=== PATIENT | female | born 1995 | race Caucasian/White ===

== ENCOUNTER 2020-07-11 14:34 | Outpatient (REF) | payer MEDICAID, SELFPAY | END 2020-07-11 14:35 | disposition home or self-care (01) | LOC: HO.LAB 14:34 | PROVIDERS: Visit Provider Internal Medicine | DX: Z20.822 Contact with and (suspected) exposure to COVID-19 (principal) | CPT/HCPCS: 36415; C9803; U0003; U0005 ==

== ENCOUNTER 2024-03-04 14:44 | Outpatient (REF) | payer MEDICAID, SELFPAY ==
[2024-03-07 17:39] LABS: TS Negative Control Passed; TS Panel A 0; TS Panel B 0; TS Positive Control Passed; TSpotTB Negative (Negative)
== END 2024-03-04 14:45 | disposition home or self-care (01) ==
LOC: HO.HHCL 14:44
PROVIDERS: Visit Provider Internal Medicine Geriatric Medicine
DX: Z11.1 Encounter for screening for respiratory tuberculosis (principal)
CPT/HCPCS: 36415; 86481

== ENCOUNTER 2024-07-15 13:39 | Outpatient (REF) | payer MEDICAID, SELFPAY ==
[2024-07-15 16:23] LABS: MANUAL DIFF FLAG NO
[2024-07-15 16:25] LABS: Basophils Percent Auto 0.3 % (0-2); Eosinophils Absolute Auto 0.1 X10*3/uL (0.0-0.4); Eosinophils Percent Auto 0.6 % (0-4); Hematocrit 40.6 % (37.0-47.0); Hemoglobin 13.4 g/dl (12.0-16.0); Imm Gran Abs Auto 0.04 X10*3/uL (0.00-0.03); Imm Gran Pct Auto 0.4 % (0.0-0.4); Lymphocytes Absolute Auto 2.9 X10*3/uL (1.2-4.9); Lymphocytes Percent Auto 27.8 % (20-40); Mean Corpuscular Volume 81.7 fL (80.0-98.0); Monocytes Absolute Auto 0.6 X10*3/uL (0.1-1.2); Monocytes Percent Auto 5.6 % (2-11); Neutrophils Absolute Auto 6.9 x10*3/uL (2.0-8.3); Neutrophils Percent Auto 65.3 % (45-73); Platelet Count 282 X10*3/uL (160-400); Red Blood Count 4.97 X10*6/uL (4.20-5.50); Red Cell Distribution Width 13.9 % (11.0-16.0); White Blood Count 10.5 X10*3/uL (4.8-10.8)
[2024-07-15 16:56] LABS: TSH reflex Free T4 1.09 uIU/mL (0.32-4.0)
[2024-07-16 08:06] LABS: HIV AB/AG Nonreactive (Nonreactive); HIV Num 1 0.07 S/CO (0.00-0.99); ~HepC Num1 0.18 S/CO (0.00-0.79); ~Hepatitis C Antibody Nonreactive (Nonreactive)
== END 2024-07-15 13:40 | disposition home or self-care (01) ==
LOC: HO.HHCL 13:39
DX: Z00.00 Encounter for general adult medical examination without abnormal findings (principal); Z11.3 Encounter for screening for infections with a predominantly sexual mode of transmission
CPT/HCPCS: 36415; 84443; 85025; 86803; 87389

== ENCOUNTER 2024-07-30 15:34 | Outpatient (REF) | payer MEDICAID, SELFPAY ==
--- OUTSIDE RECORDS SUMMARY | 2024-07-30 19:00 | XMS_ITS | Encounter Summary ---
Author Organization [employer] Address [address] [facility] [address] [place] [address] Care Team Providers Care Head Up Operator Helper Name Role Phone Arlet Sawyer MIN Primary Care Provider [phone] [phone] Encounter Details Date Type Department Care Team (Latest Contact Info) Description 07/15/2024 Travel Social History Tobacco Use Types Packs/Day Years Used Date Smoking Tobacco: Never Smokeless Tobacco: Never Alcohol Use Standard Drinks/Week Comments Yes 0 (1 standard drink = 0.6 oz pur e alcohol) Depression Answer Date Recorded Patient Health Questionnaire-9 Score 21 07/15/2024 Patient Health Questionnaire-9 Score 21 07/15/2024 Last PHQ-9: Questionnaire Data Not on file 0 07/15/2024 Housing Stability Answer Date Recorded What is your housing situation today? I have aramis gallegos 07/15/[address] you li ve. Do you have problems with any of the following? None of the above 07/15/2024 Food Insecurity Answer Date Recorded Within the past 12 months, y ou worried that your food would run out before you got money to buy more: Never True 07/15/2024 Within the past 12 months,th e food you bought just didn't last and you didn't have enough money to get more: Never True Transportation Answer Date Recorded In the past 12 months, has l ack of transportation kept you from medical appts, meetings, work or from getting things needed for daily living? No 07/15/2024 Utilities Answer Date Recorded In the past 12 months, has t he electric, gas, oil or water company threatened to shut off services in your home? No 07/15/2024 Depression Answer Date Recorded Patient Health Questionnaire-2 Score 6 07/15/2024 Internet Access Answer Date Recorded Internet Access Q1 Yes 07/15/2024 Internet Access Q2 Not on file 07/15/2024 Comments Unknown Sex and Gender Information Value Date Recorded Sex Assigned at Female 03/26/2022 10:27 AM EDT Legal Sex Female 10:27 AM EDT Gender Identity Female 03/26/2022 10:27 AM EDT Sexual Orientation Straight 03/26/2022 10 :27 AM EDT documented as of this encounter Plan of Treatment Upcoming Encounters Date Type Department Care Team (Late st Contact Info) Description 08/05/2024 10:00 AM EDT Procedure Visit [facility] [address] [place] [address] Arlet Sawyer CNP [address] [place] [address] documented as of this encounter Visit Diagnoses Not on filedocumented in this encounter Additional Health Concerns Assessment Noted Time PHQ-9 Depression Total Score: 21 025 10:22 AM EST documented as of this encounter Care Teams Head Up Operator Helper Relationship Specialty Start Date End Date Arlet Sawyer CNP [address] [place], [place] [id number] PCP - General Family Medicine 07/15/24 documented as of this encounter
--- OUTSIDE RECORDS SUMMARY | 2024-07-30 19:00 | XMS_ITS | Encounter Summary ---
Author Organization [employer] Address [address] [facility] 7 [place] [address] Care Team Providers Care Filler Shredder Name Role Phone Arlet Sawyer CNP Primary Care Provider [phone] Reason for Visit * Reason Onset Date Comments Med Refill 07/16/2024 Encounter Details Date Type Department Care Team ([facility] st Contact Info) Description 07/16/2024 Refill [facility] [address] [place] [address] Arlet Sawyer CNP [address] [place] [address] Attention deficit hyperactivity disorder (ADHD), unspecified ADHD type Social History Tobacco Use Types Packs/Day Years [...] Description 08/05/2024 10:00 AM EDT Procedure Visit [facility] [address] [place] [address] Arlet Sawyer CNP [address] [place] [address] documented as of this encounter Visit Diagnoses Diagnosis Attention deficit hyperactivity disorder (ADHD), unspecified ADHD type documented in this encounter Additional Health Concerns Assessment Noted Time PHQ-9 Depression Total Score: 21 025 10:22 AM EST documented as of this encounter Care Teams Filler Shredder Relationship Specialty Start Date End Date Arlet Sawyer CNP [address] [place] [address] PCP - General Family Medicine 07/15/24 documented as of this encounter
--- OUTSIDE RECORDS SUMMARY | 2024-07-30 19:00 | XMS_ITS | Encounter Summary ---
Author Organization [email or web address] Address [address] [facility] [address] [place] [address] Care Team Providers Care Slasher Tender Helper Name Role Phone Arlet Sawyer CNP Primary Care Provider [phone] Encounter Details Date Type Department Care Team (Late st Contact Info) Description 07/15/2024 Telephone [facility] [address] [place] [address] Arlet Sawyer CNP [address] [place] [address] Social History Tobacco Use Types Packs/Day Years [...] AM EDT documented as of this encounter Miscellaneous Notes * Telephone Encounter - Arlet Sawyer CNP - 07/15/2024 2:43 PM EST Called pt and left message regarding OCP and EC rx instructions. documented in this encounter Plan of Treatment Upcoming Encounters Date Type Department Care Team (Late st Contact Info) Description 08/05/2024 10:00 AM EDT Procedure Visit [facility] [address] [place] [address] Arlet Sawyer CNP [address] [place] [address] documented as of this encounter Visit Diagnoses Not on filedocumented in this encounter Additional Health Concerns Assessment Noted Time PHQ-9 Depression Total Score: 21 025 10:22 AM EST documented as of this encounter Care Teams Slasher Tender Helper Relationship Specialty Start Date End Date Arlet Sawyer CNP [address] [place] [address] PCP - General Family Medicine 07/15/24 documented as of this encounter
--- OUTSIDE RECORDS SUMMARY | 2024-07-30 19:00 | XMS_ITS | Encounter Summary ---
Author Organization [employer] Address [address] [facility] 7 [place] [address] Care Team Providers Care Barber Shop Manager Name Role Phone Arlet Sawyer CNP Primary Care Provider [phone] [phone] Encounter Details Date Type Department Care Team (Late st Contact Info) Description 07/17/2024 Orders Only [facility] [address] [place] [address] Arlet Sawyer CNP [address] [place] [address] Attention deficit hyperactivity disorder (ADHD), unspecified ADHD type (Primary Dx) Social History Tobacco Use Types Packs/Day Years [...] Description 08/05/2024 10:00 AM EDT Procedure Visit [facility] [address] [place] [address] Arlet Sawyer CNP [address] [place] [address] documented as of this encounter Visit Diagnoses Diagnosis Attention deficit hyperactivity disorder (ADHD), unspecified ADHD type- Primary documented in this encounter Additional Health Concerns Assessment Noted Time PHQ-9 Depression Total Score: 21 025 10:22 AM EST documented as of this encounter Care Teams Barber Shop Manager Relationship Specialty Start Date End Date Arlet Sawyer CNP [address] [place] [address] PCP - General Family Medicine 07/15/24 documented as of this encounter
--- OUTSIDE RECORDS SUMMARY | 2024-07-30 19:00 | XMS_ITS | Encounter Summary ---
Author Organization [employer] [facility] Address [address] [place] [address] [place] [address] Care Team Providers Care Corporate Services Manager Name Role Phone Arlet Sawyer CNP Primary Care Provider [phone] [phone] Encounter Details Date Type Department Care Team (Latest Contact Info) Description 08/05/2020 Abstract [facility] Dental, Provider, DDS Social History Tobacco Use Types Packs/Day Years Used Date Smoking Tobacco: Never Assessed Comments Unknown Sex and Gender Information Value [...] Description 08/05/2024 10:00 AM EDT Procedure Visit [facility] [address] [place] [address] Arlet Sawyer CNP [address] [place] [address] documented as of this encounter Visit Diagnoses Not on filedocumented in this encounter Care Teams Corporate Services Manager Relationship Specialty Start Date End Date Arlet Sawyer CNP [address] [place] [address] PCP - General Family Medicine 07/15/24 documented as of this encounter
--- OUTSIDE RECORDS SUMMARY | 2024-07-30 19:00 | XMS_ITS | Encounter Summary ---
Author Organization [employer] Address [address] [facility] 7 [place] [address] Care Team Providers Care Heat Treat Operator Name Role Phone Arlet Sawyer CNP Primary Care Provider [phone] [phone] Reason for Visit * Reason Onset Date Comments Chart Prep 07/16/2024 Encounter Details Date Type Department Care Team ([facility] st Contact Info) Description 07/16/2024 Telephone [facility] [address] [place] [address] Arlet Sawyer CNP [address] [place] [address] Chart Prep Social History Tobacco Use Types Packs/Day Years [...] encounter Miscellaneous Notes * Telephone Encounter - Joe Gruber [place] - 07/16/2024 1:21 PM EST Chart Prep Labs: done Images: not done Vaccines due: yes Referrals: pending appt Screenings: pap smear Overdue care gaps: Sbirt documented in this encounter Plan of Treatment Upcoming Encounters Date Type Department Care Team (Late st Contact Info) Description 08/05/2024 10:00 AM EDT Procedure Visit [facility] [address] [place] [address] Arlet Sawyer CNP [address] [place] [address] documented as of this encounter Visit Diagnoses Not on filedocumented in this encounter Additional Health Concerns Assessment Noted Time PHQ-9 Depression Total Score: 21 025 10:22 AM EST documented as of this encounter Care Teams Heat Treat Operator Relationship Specialty Start Date End Date Arlet Sawyer CNP [address] [place] [address] PCP - General Family Medicine 07/15/24 documented as of this encounter
--- OUTSIDE RECORDS SUMMARY | 2024-07-30 19:00 | XMS_ITS | Clinical Summary ---
Author Organization [employer] Address [address] [facility] 7 [place] [address] Care Team Providers Care Operations Trainer Name Role Phone Arlet Sawyer MIN Primary Care Provider [phone] Allergies No known active allergies Medications * This document contains information received from the source organization and may not represent a complete record from that organization. acetaminophen (Tylenol) 500 MG tablet take 1 tablet (500MG) by oral route every 6 hours as needed 07/27/19 20 Active nicotine (Nicoderm CQ) 7 MG/24HR patchIndications: Encounter for tobacco use cessation counseling Place 1 patch on the skin 1 (one) time each day at the same time. 30 patch 07/15/19 25 025 Active nicotine polacrilex (Nicorette) 4 MG gumIndications:En counter for tobacco use cessation counseling Chew 1 each (4 mg) if needed for smoking cessation. 100 each 07/15/19 25 025 Active hydrocortisone 1 % ointmentIndicatio ns:Dermatitis Apply topically 2 times daily. 56 g 07/15/19 25 Active norethindrone-eth inyl estradiol (Nortrel 0.5/35, 28,) 0.5-35 MG-MCG tabletIndications :Encounter for initial prescription of contraceptive pills Take 1 tablet by mouth Once per day. 28 tablet 12 07/15/19 25 026 Active Methylphenidate HCl (methylphenidate ER) 27 MG 24 hr tabletIndications :Attention deficit hyperactivity disorder (ADHD), unspecified ADHD type Take 1 tablet (27 mg) by mouth Once per day. Do not crush, chew, or split. 30 tablet 07/17/19 25 025 Active chlorhexidine (Peridex) 0.12 % solutionIndicatio ns:Dental abscess Swish 15 mL morning and night for 1 minute. Spit, do not swallow. Do not eat or drink for 30 minutes following use. 473 mL 11/18/19 24 025 Discontinu ed(Therapy completed) methylphenidate ER (Adhansia XR) 25 MG 24 hour capsuleIndication s:Attention deficit hyperactivity disorder (ADHD), unspecified ADHD type Take 1 capsule (25 mg) by mouth in the morning. Do not crush or chew. 30 capsule 07/15/19 25 025 Discontinu ed(Other) ulipristal (Janett) 30 mg tabletIndications :Encounter for initial prescription of contraceptive pills Take 1 tablet (30 mg) by mouth 1 (one) time for 1 dose. 1 tablet 11 07/15/19 025 Active Problems Problem Noted Date Diagnosed Date Encounter for screening exam ination for sexually transmitted disease 07/15/2024 Assessment & Plan (07/15/2024 2:27 PM EST): Ordered routine STI/screening Discussed safe sexual practices and sent script for OCPs and EC Encounter for initial prescription of contracept christophe pills 07/15/2024 Assessment & Plan (07/15/2024 2:40 PM EST): Hcg negative For contraceptive counseling today, we discussed: Methods that the patient previously used and what worked and didn't work for them: patch due to adherence Method characteristics that are important to them: control, desires weight gain, desires regular periods Their medical history,, confirming no medical contraindications to estrogen/hormonal methods/IUDs, or revealing a contraindication to estrogen/hormonal methods/IUDs We discussed the R/B/A of the methods that they are eligible for and wanted to learn about: Nexplanon, IUD (hormonal or copper), patch, OCPs We discussed that they may want to use more than one method (dual method use), one method, or no method. We also discussed that they can stay on their current method, and that they don't need to make a decision today. I emphasized that switching methods is common, and that they can discontinue using any method at any time. After today's discussion, they would like to try OCP method. We discussed correct method use and indications for emergency contraceptive use. They can follow up at any time to discuss their contraceptive options, side effects they're experiencing, or to switch methods. EC rx sent in. Dermatitis 07/15/2024 Assessment & Plan (07/15/2024 2:27 PM EST): Pt declines changes in soaps or detergents, she uses unscented products She has noticed an increase in sensitivity to certain foods and products as of lately Will send topical steroid cream for itching and inflammation, plan to refer to derm at f/u if rash persists Will refer to allergy for allergy testing Encounter for tobacco use cessation counseling 0 07/15/2024 Assessment & Plan (07/15/2024 2:31 PM EST): Pt motivated to quit and would like medication for cessation Discussed patch and gum Pt unsure of which she would like try but is leaning more towards patch Advised pt I will send patch to use daily to promote adherence and have gum on hand in case she wants to try for prn craving control Healthcare maintenance 07/15/2024 Assessment & Plan (07/15/2024 2:32 PM EST): Obtaining routine blood work today Pt will bring IMM record to f/u Pt due for pap smear Dental: UTD Eye: referral placed for routine exam Anxiety 07/15/2024 Assessment & Plan (07/15/2024 2:33 PM EST): Per pt and per exam and hx, anxiety seems to be related to lifestyle changes and stress, no SI or HI at this time Discussed various medications and resources for mh Pt declines in office consult Pt would like to be referred to for telemedicine therapy services Hearing loss of right ear 07/15/2024 Assessment & Plan (07/15/2024 2:34 PM EST): Physical exam wnl Referral to audiology for hearing test placed Family history of sickle cell anemia 07/15/2024 Assessment & Plan (07/15/2024 2:34 PM EST): Referral placed to genetics for genetic testing Allergies 07/15/2024 Assessment & Plan (07/15/2024 2:35 PM EST): She has noticed an increase in sensitivity to certain foods and products as of lately Per pt would like referral to [facility] selector for allergy testing, referral placed Attention deficit hyperactivity disorder (ADHD) 07/15/2024 Assessment & Plan (07/15/2024 2:37 PM EST): Utilized adult ADHD self reporting tool via [employer] which was positive for ADHD symptoms Also based on physical exam and hx, pt appears to have ADHD As a child pt was taking concerta Will trial concerta at initial dose F/u in 1 month Vaginal burning 07/15/2024 Assessment & Plan (07/15/2024 2:22 PM EST): Will obtain U/A today at lab along with other ordered lab work Obtaining routine STI/screening d/t to multiple instances of UPI with same partner F/u for pap smear next month Irregular periods 07/15/2024 Assessment & Plan (07/15/2024 2:24 PM EST): Discussed reasons for period irregularity as a multifactorial condition, stress and fluctuations in hormonal levels may cause changes in menses. Period was regular this month. Will obtain labs- see orders as well as pelvic/transvaginal ultrasound to rule out structural causes of irregular bleeding Discussed contraceptive methods with patient and patient would like to start OCPs for control and period regulation F/u in 1 month Encounters * This document contains information received from the source organization and may not represent a complete record from that organization. Date Type Department Care Team Description 07/17/2024 Orders Only [facility] MED[facility]INE [address] [place] [address] Arlet Saweyr CNP Attention deficit hyperactivity disorder (ADHD), unspecified ADHD type (Primary Dx) 07/16/2024 Refill [facility] [address] [place] [address] Arlet Sawyer CNP Attention deficit hyperactivity disorder (ADHD), unspecified ADHD type 07/16/[address] [address] Arlet Sawyer CNP Chart Prep 07/15/2024 10:00 AM EST Office Visit [address] [address] Arlet Sawyer CNP Encounter for screening examination for sexually transmitted disease (Primary Dx); Encounter for initial prescription of contraceptive pills; Dermatitis; Encounter for tobacco use cessation counseling; Healthcare maintenance; Anxiety; Hearing loss of right ear, unspecified hearing loss type; Family history of sickle cell anemia; Allergy, initial encounter; Attention deficit hyperactivity disorder (ADHD), unspecified ADHD type; Vaginal burning; Irregular periods 07/15/[address] [address] Arlet Sawyer CNP 07/15/2024 Travel 07/14/[address] [address] Arlet Sawyer CNP Chart prep 07/07/2024 Patient Outreach [facility] [address] [place] [address] Arlet Sawyer CNP Pre-visit Planning ([facility] unable to reach [facility]) 07/07/2024 Telephone [facility] [address] [place] [phone] Arlet Sawyer CNP Chart Prep 07/03/2024 10:00 AM EST Office Visit [facility] ADULT DENTAL [address] [place] [address] Ortega Castano 07/02/2024 11:00 AM EST Office Visit [facility] ADULT DENTAL [address] [place] [address] Ortega Castano 06/17/2024 9:30 AM EST Office Visit [facility] ADULT DENTAL [address] [place] [address] Zack Salinas DMD Severe dental caries (Primary Dx) 06/16/2024 2:00 PM EST Office Visit [facility] ADULT DENTAL [address] [place] [address] Janie Bryant DMD 05/12/[address] [address] Guerline Bolton NP Appointment Request; New Patient appt. 05/11/2024 Telephone [facility] MED[facility]INE [address] [place] [address] Aida Tello MA Chart Prep 05/05/2024 Patient Outreach [facility] PEDIATRICS [address] [place] [address] Guerline Bolton NP Pre-visit Planning (Pre-visit planning - LVM ) from Last 3 Months Social History Tobacco Use Types Packs/Day Years Used Date Smoking Tobacco: Never Smokeless Tobacco: Never Tobacco Cessation:Counseling Given: Not Answered Alcohol Use Standard Drinks/Week Comments Yes 0 [...] Orientation Straight 03/26/2022 10 :27 AM EDT Last Filed Vital Signs Vital Sign Reading Time Taken Comments Blood Pressure 108/62 07/15/2024 10:11 AM EST Pulse 80 07/15/2024 10:11 AM EST Temperature 37.1 ??C (98.7 ??F) 07/15/2024 10:[address] Respiratory Rate 16 07/15/2024 10:11 AM EST Oxygen Saturation 99% 07/15/2024 10:11 AM EST Inhaled Oxygen Concentration - - Weight 52.8 kg (116 lb 6.4 oz) 07/15/2024 10:11 AM EST Height - - Body Mass Index - - Plan of Treatment Upcoming Encounters Date Type Department Care Team (Late st Contact Info) Description 08/05/2024 10:00 AM EDT Procedure Visit [facility] MED[facility] [address] [place] [address] [phone] Arlet Sawyer, [facility] [address], [place] [phone] Health Maintenance Due Date Last Done Comments Alcohol/Substance Use Screening 2008 DTaP/Tdap/Td Vaccines (1 - Tdap) 01/22/2015 Hepatitis B Vaccines (1 of 3 - 19+ 3-dose series) 01/22/2015 Pap Smear 01/22/2017 COVID-19 Vaccine ( - 2023-2 5 season) 2024 Influenza Vaccine (#1) 2024 Dental Oral Exam 10/02/2024 04/03/2024, 08/05/2020 Dental Prophylaxis 10/02/2024 04/03/2024, 08/05/2020 Depression Monitoring (PHQ-9) 01/12/2025, 07/15/2024 Dental X-Ray: Bitewings 06/17/2025 06/16/19 25, 04/03/2024, 08/05/2020 Tobacco Screening 06/17/2025 06/17/2024 Depression Screening 07/15/2025 07/15/2024, 07/15/2024 Family Planning (PISQ) 07/15/2025 07/15/2024 SDOH Screening 07/15/2025 07/15/2024 Dental X-Ray: Full Mouth 04/04/2027 024, 08/05/2020, 04/02/2018 Zoster Vaccines (1 of 2) 01/22/2046 RSV Patients and Patients Aged 60 years or older (1 - 1-dose 75+ series) 01/22/2071 HIV Screening Completed 07/15/2024 Hepatitis C Screening Completed 07/15/2024 HIB Vaccines Aged Out No longer eligi ble based on patient's age to complete this topic HPV Vaccines Aged Out No longer eligi ble based on patient's age to complete this topic Hepatitis A Vaccines Aged Out No long er eligible based on patient's age to complete this topic IPV Vaccines Aged Out No longer eligi ble based on patient's age to complete this topic Meningococcal Vaccine Aged Out No acacia suresh eligible based on patient's age to complete this topic Pneumococcal Vaccine: Pediatrics (0 to 5 Years) and At-Risk Patients (6 to 49) Years) Aged Out No longer eligible b ased on patient's age to complete this topic RSV under 20 months Aged Out No longe r eligible based on patient's age to complete this topic Rotavirus Vaccines Aged Out No longer eligible based on patient's age to complete this topic Procedures Procedure Name Priority Date/Time Associated Diagnosis Comments TSH W/REFLEX TO FT4 Routine 07/15/2024 1 :41 PM EST Healthcare maintenance CBC WITH AUTO DIFFERENTIAL Routine 07/15/2024 1:41 PM EST Healthcare maintenance HEPATITIS C AB W/REFL TO HCV RNA, QN, PCR Routine 07/15/2024 1:41 PM EST Encounter for screening examination for sexually transmitted disease HIV 1/2 ANTIGEN/ANTIBODY, FOURTH GENERATION W/RFL Routine 07/15/2024 1:41 PM EST Encounter for screening examination for sexually transmitted disease POCT , URINE Routine 07/15/2024 10:24 AM EST Encounter for screening examination for sexually transmitted disease 2 O RESIN-BASED COMPOSITE - 1 SURF, POSTERIOR Routine 07/03/2024 10:00 AM EST ORAL HYGIENE INSTRUCTIONS Routine 07/02/2024 11:00 AM EST 15 LO RESIN-BASED COMPOSITE - 2 SURF, POSTERIOR Routine 07/02/2024 11:00 AM EST CASE PRESENTATION, DETAILED AND EXTENSIVE TREATMENT PLANNING Routine 06/17/2024 9:30 AM EST Severe dental caries 18 EXTRACTION, ERUPTED TOOTH OR EXPOSED ROOT (ELEVATION/FORCEPS REMOVAL) Routine 06/17/2024 9:30 AM EST Severe dental caries CASE PRESENTATION, DETAILED AND EXTENSIVE TREATMENT PLANNING Routine 06/16/2024 2:00 PM EST BITEWING - SINGLE RADIOGRAPHIC IMAGE Routine 06/16/2024 2:00 PM EST INTRAORAL - PERIAPICAL FIRST RADIOGRAPHIC IMAGE Routine 06/16/2024 2:00 PM EST LIMITED ORAL EVALUATION - PROBLEM FOCUSED Routine 06/16/2024 2:00 PM EST PROPHYLAXIS - ADULT Routine 04/03/2024 2 :00 PM EST INTRAORAL - COMPLETE SERIES OF RADIOGRAPHIC IMAGES Routine 04/03/2024 2:00 PM EST COMPREHENSIVE ORAL EVALUATION - NEW OR ESTABLISHED PATIENT Routine 04/03/2024 2:00 PM EST from Last 3 Months or Most Recently Relevant to Health Maintenance Results * TSH W/Reflex to FT4 (07/15/2024 1:41 PM EST) TSH reflex Free T4 1.09 0.32 - 4.0 uIU/mL [facility] Blood Venous blood specimen / Unknown 07/15/2024 1:41 PM EST 07/15/2024 4:20 PM EST [facility] LAB BLOOD ORDERABLES Katya l Result [facility] [address] [place] [address] [phone] * (ABNORMAL) CBC auto differential (07/15/2024 1:41 PM EST) White Blood Count 10.5 4.8 - 10.8 X10*3/uL [facility] Red Blood Count 4.97 4.20 - 5.50 X10*6/uL [facility] Hemoglobin 13.4 12.0 - 16.0 g/dl [facility] Hematocrit 40.6 37.0 - 47.0 % [facility] Mean Corpuscular Volume 81.7 80.0 - 98.0 fL [facility] Mean Corpuscular Hemoglobin 27.0 27.0 - 33.0 pg [facility] Mean Corpuscular HGB Conc 33.0 31.0 - 35.0 g/dl [facility] Red Cell Distribution Width 13.9 11.0 - 16.0 % [facility] Platelet Count 282 160 - 400 X10*3/uL [facility] Mean Platelet Volume 9.0(L) 9.4 - 12.3 fL [facility] Neutrophils Percent Auto 65.3 45 - 73 % [facility] Imm Gran Pct Auto 0.4 0.0 - 0.4 % [facility] Lymphocytes Percent Auto 27.8 20 - 40 % [facility] Monocytes Percent Auto 5.6 2 - 11 % [facility] Eosinophils Percent Auto 0.6 0 - 4 % [facility] Basophils Percent Auto 0.3 0 - 2 % [facility] NRBC Pct Auto 0.0 0.0 - 0.2 /100WBC [facility] Neutrophils Absolute Auto 6.9 2.0 - 8.3 x10*3/uL [facility] Imm Gran Abs Auto 0.04(H) 0.00 - 0.03 X10*3/uL [facility] Lymphocytes Absolute Auto 2.9 1.2 - 4.9 X10*3/uL [facility] Monocytes Absolute Auto 0.6 0.1 - 1.2 X10*3/uL [facility] Eosinophils Absolute Auto 0.1 0.0 - 0.4 X10*3/uL [facility] Basophils Absolute Auto 0.0 0.0 - 0.2 X10*3/uL [facility] NRBC Abs Auto 0.000 0.0 - 0.012 X10*3/uL [facility] Blood Venous blood specimen / Unknown 07/15/2024 1:41 PM EST 07/15/2024 4:20 PM EST [facility] LAB BLOOD ORDERABLES Katya l Result Performing Organization Address City/[facility]/ZIP Co de Phone Number [facility] [address] [place] [phone] * Hepatitis C Antibody with Reflex to HCV, RNA, Quantitative, Real-Time PCR (07/15/2024 1:41 PM EST) Hepatitis C Antibody Nonreactive Nonreactive [facility] Comment:Antibodies to HCV no t detected; does not exclude early acuteHCV infection. Blood Venous blood specimen / Unknown 07/15/2024 1:41 PM EST 07/15/2024 4:20 PM EST [facility] LAB BLOOD ORDERABLES Katya l Result Performing Organization Address [facility] Co de Phone Number [facility] [address] [place] [phone] * HIV-1/2 Antigen and Antibodies, Fourth Generation, with Reflexes (07/15/2024 1:41 PM EST) HIV AB/AG Nonreactive Nonreactive [facility] Comment:HIV-1 p24 Ag and/or HIV-1/HIV-2 Ab not detected.A test result that is nonreactive does not exclude thepossibility of exposure to or infection with HIV-1 and/orHIV-2. Nonreactive results in this assay for individualswith prior exposure to HIV-1 and/or HIV-2 may be due toantigen and antibody levels that are below the limit ofdetection of this assay.The [email or web address] HIV Ag/Ab Combo assay result andsupplemental assay results should be interpreted inconjunction with the patient's clinical presentation,history and other laboratory results. If the results areinconsistent with clinical evidence, additional testing issuggested to confirm the result. Blood Venous blood specimen / Unknown 07/15/2024 1:41 PM EST 07/15/2024 4:20 PM EST [facility] [employer] LAB BLOOD ORDERABLES Katya l Result [facility] [address] [place] [address] [phone] * POCT Urine (07/15/2024 10:24 AM EST) Preg Test, Ur Negative Negative, Indeterminate, None Detected, Invalid, Specimen unsatisfactory for evaluation, Weakly Positive QC Media Lot # [id number] Lot# Expiration Date [id number] Urine 07/15/2024 10:2 4 AM EST [facility] [employer] POINT OF CARE TEST ENTER/ EDIT ORDERABLES Final Result from Last 3 Months Insurance [facility] C3 DENTAL-[facility] MEDICAID STAND ADULT Care Teams Operations Trainer Relationship Specialty Start Date End Date Arlet Sawyer CNP [address] [place] [phone] PCP - General Family Medicine 07/15/24
--- OUTSIDE RECORDS SUMMARY | 2024-07-30 19:00 | XMS_ITS | Encounter Summary ---
Author Organization [facility] Address [address] [place] [address] [place] [address] Care Team Providers Care Net Developer Architect Name Role Phone Arlet Sawyer CNP Primary Care Provider [phone] Encounter Details Date Type Department Care Team (Late st Contact Info) Description 10/09/2022 Abstract [facility] ADULT DENTAL [address] [place] [address] Сергей Kunz DMD [address] [place] [address] Social History Tobacco Use Types Packs/Day Years [...] Description 08/05/2024 10:00 AM EDT Procedure Visit [facility] MEDICINE [address] [place] [address] Arlet Sawyer CNP [address] [place] [address] documented as of this encounter Visit Diagnoses Not on filedocumented in this encounter Care Teams Net Developer Architect Relationship Specialty Start Date End Date Arlet Sawyer CNP [address] [place] [address] PCP - General Family Medicine 07/15/24 documented as of this encounter
--- OUTSIDE RECORDS SUMMARY | 2024-07-30 19:01 | XMS_ITS | Encounter Summary ---
Author Organization [employer] Address [address] [facility] 7 [place] [address] Care Team Providers Care Shirt Finisher Name Role Phone Unavailable Primary Care Provider Unavailabl e Reason for Visit * Reason Onset Date Comments Chart prep 07/14/2024 Encounter Details Date Type Department Care Team ([facility] st Contact Info) Description 07/14/2024 Telephone [facility] MEDICINE [address] [place] [address] Arlet Sawyer CNP [address] [place] [address] Chart prep Social History Tobacco Use Types Packs/Day Years [...] encounter Miscellaneous Notes * Telephone Encounter - Jeo Gruber [place] - 07/14/2024 10:42 AM EST Chart Prep Labs: not applicable Images: not applicable Vaccines due: yes Tdap Flu Covid Referrals: pending appt Screenings: pap smear , STI screening Depression HIV Alcohol/Substance Use Hep C Overdue care gaps: Sbirt, SDOH, PHQ-9, Oral Health, CECILIA-7 documented in this encounter Plan of Treatment Upcoming Encounters Date Type Department Care Team (Late st Contact Info) Description 08/05/2024 10:00 AM EDT Procedure Visit [facility] MED[facility] [address] [place] [address] Arlet Sawyer CNP [address] [place] [address] documented as of this encounter Visit Diagnoses Not on filedocumented in this encounter
--- OUTSIDE RECORDS SUMMARY | 2024-07-30 19:01 | XMS_ITS | Encounter Summary ---
Author Organization [employer] Address [address] [facility] [place] [address] Care Team Providers Care Transportation Modeler Name Role Phone Unavailable Primary Care Provider Unavailabl e Reason for Visit * Reason Onset Date Comments Chart Prep 07/07/2024 Encounter Details Date Type Department Care Team ([facility] Contact Info) Description 07/07/2024 Telephone [facility] WALK-IN CENTER [address] [place] [phone] Arlet Sawyer CNP [address] [place] [address] Chart Prep Social History Tobacco Use Types Packs/Day Years Used Date Smoking Tobacco: Never Smokeless Tobacco: Never Alcohol Use Standard Drinks/Week Comments Yes 0 (1 standard drink = 0.6 oz pur e alcohol) Comments Unknown Sex and Gender Information Value Date Recorded Sex Assigned at Female 03/26/2022 10:27 AM EDT Legal Sex Female 10:27 AM EDT Gender Identity Female 03/26/2022 10:27 AM EDT Sexual Orientation Straight 03/26/2022 10 :27 AM EDT documented as of this encounter Miscellaneous Notes * Telephone Encounter - Joe Gruber [place] - 07/07/2024 10:06 AM EST Chart Prep Labs: not done Images: not applicable Vaccines due: yes Tdap Hep B Flu Covid Referrals: pending appt Screenings: Depression HIV Alcohol/Substance Use PISQ Pap Smear Overdue care gaps: Sbirt, SDOH, PHQ-9, CECILIA-7 documented in this encounter Plan of Treatment Upcoming Encounters Date Type Department Care Team (Late st Contact Info) Description 08/05/2024 10:00 AM EDT Procedure Visit [facility] MEDICINE [address] [place], [place] [phone] Arlet Sawyer CNP [address] [place] [address] documented as of this encounter Visit Diagnoses Not on filedocumented in this encounter
--- OUTSIDE RECORDS SUMMARY | 2024-07-30 19:01 | XMS_ITS | Encounter Summary ---
Author Organization [employer] Address [address] [place] [address] 7 [place] [address] Care Team Providers Care Shift Nurse Manager Name Role Phone Arlet Sawyer CNP Primary Care Provider [phone] Reason for Referral * Imaging (Routine) - Authorized Specialty Diagnoses / Procedures Referred By Jennifer mcguire Referred To Contact Radiology Diagnoses Irregular periods Procedures US PELVIC AND TRANSVAGINAL Arlet Sawyer CNP [address] [place] [address] Phone: tel: fax: [address] Phone: tel: fax: Referral ID Status Reason Start Date Expiration Date V isits Requested Visits Authorized [id number] Authorized 07/15/2024 07/15/2025 1 1 * Consultation (Routine) - Authorized Specialty Diagnoses / Procedures Referred By Jennifer mcguire Referred To Contact Optometry Diagnoses Healthcare maintenance Arlet Sawyer CNP [address] [place] [address] Phone: tel: fax: [facility] [address] [place] [phone] Phone: tel: fax: Referral ID Status Reason Start Date Expiration Date Visits Requested Visits Authorized [id number] Authorized Consult and Treat 07/15/2024 07/15/2025 1 1 * Consultation (Routine) - Authorized Specialty Diagnoses / Procedures Referred By Jennifer mcguire Referred To Contact Allergy Diagnoses Allergy, initial encounter Arlet Sawyer CNP [address] [place] [address] Phone: tel: fax: Josue Kunz MD [address] [facility] [address] [place] [address] Phone: tel: fax: Referral ID Status Reason Start Date Expiration Date Visits Requested Visits Authorized [id number] Authorized Specialty Services Required 07/15/2024 07/15/2025 12 12 * Consultation (Routine) - Closed Specialty Diagnoses / Procedures Referred By Jennifer mcguire Referred To Contact Genetics Diagnoses Family history of sickle cell anemia Arlet Sawyer CNP [address] [place] [address] Phone: tel: fax: [facility] [address], [place] Phone: tel: fax: Referral ID Status Reason Start Date Expiration Date V isits Requested Visits Authorized [id number] Closed Specialty Services Required 07/15/2024 07/15/2025 1 1 * Consultation (Routine) - Authorized Specialty Diagnoses / Procedures Referred By Jennifer mcguire Referred To Contact Audiology Diagnoses Hearing loss of right ear, unspecified hearing loss type Arlet Sawyer CNP [address] [place] [address] Phone: tel: fax: [facility] [address] Floor [place], [place] Phone: tel: fax: Referral ID Status Reason Start Date Expiration Date Visits Requested Visits Authorized [id number] Authorized Specialty Services Required 07/15/2024 07/15/2025 6 6 * Consultation (Routine) - Closed Specialty Diagnoses / Procedures Referred By Jennifer mcguire Referred To Contact Behavioral Health Diagnoses Anxiety Arlet Sawyer CNP [address] [place] [address] Phone: tel: fax: Referral ID Status Reason Start Date Expiration Date V isits Requested Visits Authorized [id number] Closed Specialty Services Required 07/15/2024 07/15/2025 1 1 Reason for Visit * Reason Comments New Pt Encounter Details Date Type Department Care Team (Latest Contact Info) Description 07/15/2024 10:00 AM EST Office Visit [facility] [address] [place] [phone] Arlet Sawyer CNP [address] [place] [address] Encounter for screening examination for sexually transmitted disease (Primary Dx); Encounter for initial prescription of contraceptive pills; Dermatitis; Encounter for tobacco use cessation counseling; Healthcare maintenance; Anxiety; Hearing loss of right ear, unspecified hearing loss type; Family history of sickle cell anemia; Allergy, initial encounter; Attention deficit hyperactivity disorder (ADHD), unspecified ADHD type; Vaginal burning; Irregular periods Social History Tobacco Use Types Packs/Day Years [...] AM EDT documented as of this encounter Last Filed Vital Signs Vital Sign Reading [...] - - Body Mass Index - - documented in this encounter Progress Notes * Arlet Sawyer CNP - 07/15/2024 10:00 AM EST Subjective: Amisha Elliott is a 29 y.o. female who presents to the office for a new patient visit. Previous PCP none. Interim history: Pt says she has been getting ready to take her ASVAB exam. 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 Current concerns: Attention concerns, has childhood ADHD hx, reports sx getting worse as of July 2023 when she started schiik. Hearing concerns, pt reports she is having muffled hearing in her R ear that has been going on for about a year. Allergen testing- noticing new food allergies such as allergy to tomatoes causing pharyngeal itching Having trouble gaining weight, appetite is good, tried increasing protein, ensure, creatine. Goes to the gym, 2x a week, does weight lifting. Would like to discuss contraceptive methods Pt also complaining of burning sensation when she uses the bathroom, and she also says that since she was a child she has always held her bladder for too long before using the bathroom. Pt would like to get genetic testing for sickle cell as she has a positive family hx. Father, mother, and older brother have sickle cell trait. Patient Active Problem List Diagnosis Encounter for screening examination for sexually transmitted disease Encounter for initial prescription of contraceptive pills Dermatitis Encounter for tobacco use cessation counseling Healthcare maintenance Anxiety Hearing loss of right ear Family history of sickle cell anemia Allergies Attention deficit hyperactivity disorder (ADHD) Vaginal burning Irregular periods No past surgical history on file. No family history on file. Social History Living situation: lives at home with mom Employment/Education: job less currently, looking for job. 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 Diet/exercise: exercises 2 x a week Substance use: -alcohol : occasionally, 1-2 drinks weekly -tobacco : flavored nicotine vapes, started last summer 2023, takes about 4 puffs daily -opioids: none Sexual activity: yes, has monogamous AMAB partner x 8 months, last UPI 5 days ago Contraception: none at this time , hx of using patch Mental health: Patient Health Questionnaire-9 Score: 21 (07/15/2024 10:22 AM) Patient Health Questionnaire-2 Score: 6 (07/15/2024 10:22 AM) Thoughts that you would be better off or hurting yourself in some way: Not at all (07/15/2024 10:22 AM) CECILIA-7 Total Score: 16 (07/15/2024 10:23 AM) 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 Has had to use tampons when periods were heavier. No hx of pap smear No Known Allergies Review of Systems Constitutional: Negative for activity change, appetite change, chills, diaphoresis, fatigue, fever and unexpected weight change. HENT: Positive for hearing loss. Negative for ear discharge and ear pain. Eyes: Negative for visual disturbance. Respiratory: Negative for cough, choking, shortness of breath and wheezing. Cardiovascular: Negative for chest pain and palpitations. Gastrointestinal: Negative for abdominal distention, abdominal pain, blood in stool, constipation, diarrhea, nausea and vomiting. Genitourinary: Positive for dysuria and menstrual problem. Negative for flank pain, hematuria, pelvic pain, urgency, vaginal bleeding, vaginal discharge and vaginal pain. Musculoskeletal: Negative. Neurological: Positive for weakness. Negative for dizziness, seizures, speech difficulty, light-headedness and headaches. Psychiatric/Behavioral: Positive for decreased concentration. Negative for behavioral problems, confusion, dysphoric mood, hallucinations, self-injury, sleep disturbance and suicidal ideas. The patient is nervous/anxious and is hyperactive. Vitals: 07/15/24 1011 BP: 108/62 Pulse: 80 Resp: 16 Temp: 98.7 ??F (37.1 ??C) TempSrc: Oral SpO2: 99% Weight: 116 lb 6.4 oz (52.8 kg) Physical Exam Constitutional: General: She is not in acute distress. Appearance: Normal appearance. She is not ill-appearing or toxic-appearing. HENT: Head: Normocephalic and atraumatic. Right Ear: Tympanic membrane, ear canal and external ear normal. There is no impacted cerumen. Left Ear: Tympanic membrane, ear canal and external ear normal. There is no impacted cerumen. Nose: No congestion or rhinorrhea. Mouth/Throat: Mouth: Mucous membranes are moist. Pharynx: No oropharyngeal exudate or posterior oropharyngeal erythema. Eyes: General: No scleral icterus. Right eye: No discharge. Left eye: No discharge. Extraocular Movements: Extraocular movements intact. Conjunctiva/sclera: Conjunctivae normal. Pupils: Pupils are equal, round, and reactive to light. Cardiovascular: Rate and Rhythm: Normal rate and regular rhythm. Pulses: Normal pulses. Heart sounds: Normal heart sounds. No murmur heard. No friction rub. No gallop. Pulmonary: Effort: Pulmonary effort is normal. No respiratory distress. Breath sounds: Normal breath sounds. No stridor. No wheezing, rhonchi or rales. Chest: Chest wall: No tenderness. Abdominal: General: Abdomen is flat. Bowel sounds are normal. There is no distension. Palpations: Abdomen is soft. There is no mass. Tenderness: There is abdominal tenderness in the suprapubic area. There is no guarding. Comments: +mild tenderness to palpation in left lower pelvic area Musculoskeletal: General: Normal range of motion. Cervical back: Normal range of motion and neck supple. No tenderness. Right lower leg: No edema. Left lower leg: No edema. Lymphadenopathy: Cervical: No cervical adenopathy. Skin: General: Skin is warm and dry. Capillary Refill: Capillary refill takes less than 2 seconds. Findings: Rash present. Comments: +skin rash noted under bra strap in the front and back of abdomen. Neurological: General: No focal deficit present. Mental Status: She is alert and oriented to person, place, and time. Psychiatric: Mood and Affect: Mood normal. Behavior: Behavior normal. Thought Content: Thought content normal. Judgment: Judgment normal. Problem List Items Addressed This Visit Encounter for screening examination for sexually transmitted disease - Primary Current Assessment & Plan Ordered routine STI/screening Discussed safe sexual practices and sent script for OCPs and EC Relevant Orders POCT Urine (Completed) HIV-1/2 Antigen and Antibodies, Fourth Generation, with Reflexes Hepatitis C Antibody with Reflex to HCV, RNA, Quantitative, Real-Time PCR Encounter for initial prescription of contraceptive pills Current Assessment & Plan Hcg negative For contraceptive counseling today, we [...] try OCP method. We discussed correct method useand indications for emergency contraceptive use. They can follow up at any time to discuss their contraceptive options, side effects they're experiencing, or to switch methods. EC rx sent in. Relevant Medications norethindrone-ethinyl estradiol (Nortrel 0.5/35, 28,) 0.5-35 MG-MCG tablet ulipristal (Janett) 30 mg tablet Dermatitis Current Assessment & Plan Pt declines changes in soaps or detergents, she uses unscented products She has noticed an increase in sensitivity to certain foods and products as of lately Will send topical steroid cream for itching and inflammation, plan to refer to derm at f/u if rash persists Will refer to allergy for allergy testing Relevant Medications hydrocortisone 1 % ointment Encounter for tobacco use cessation counseling Current Assessment & Plan Pt motivated to quit and would like medication for cessation Discussed patch and gum Pt unsure of which she would like try but is leaning more towards patch Advised pt I will send patch to use daily to promote adherence and have gum on hand in case she wants to try for prn craving control Relevant Medications nicotine (Nicoderm CQ) 7 MG/24HR patch nicotine polacrilex (Nicorette) 4 MG gum Healthcare maintenance Current Assessment & Plan Obtaining routine blood work today Pt will bring IMM record to f/u Pt due for pap smear Dental: UTD Eye: referral placed for routine exam Relevant Orders CBC auto differential TSH W/Reflex to FT4 Referral to [facility] Care Anxiety Current Assessment & Plan Per pt and per exam and hx, anxiety seems to be related to lifestyle changes and stress, no SI or HI at this time Discussed various medications and resources for mh Pt declines in office consult Pt would like to be referred to for telemedicine therapy services Relevant Orders Referral to Behavioral Health Hearing loss of right ear Current Assessment & Plan Physical exam wnl Referral to audiology for hearing test placed Relevant Orders Referral to Audiology Family history of sickle cell anemia Current Assessment & Plan Referral placed to genetics for genetic testing Relevant Orders Referral to Genetics Allergies Current Assessment & Plan She has noticed an increase in sensitivity to certain foods and products as of lately Per pt would like referral to pai gow manager for allergy testing, referral placed Relevant Orders Referral to Allergy Attention deficit hyperactivity disorder (ADHD) Current Assessment & Plan Utilized adult ADHD self reporting tool via UpToDate which was positive for ADHD symptoms Also based on physical exam and hx, pt appears to have ADHD As a child pt was taking concerta Will trial concerta at initial dose F/u in 1 month Relevant Medications methylphenidate ER (Adhansia XR) 25 MG 24 hour capsule Vaginal burning Current Assessment & Plan Will obtain U/A today at lab along with other ordered lab work Obtaining routine STI/screening d/t to multiple instances of UPI with same partner F/u for pap smear next month Relevant Orders Urinalysis, Complete, with Reflex to Culture Irregular periods Current Assessment & Plan Discussed reasons for period irregularity as a multifactorial condition, stress and fluctuations inhormonal levels may cause changes in menses. Period was regular this month. Will obtain labs- see orders as well as pelvic/transvaginal ultrasound to rule out structural causes of irregular bleeding Discussed contraceptive methods with patient and patient would like to start OCPs for controland period regulation F/u in 1 month Relevant Orders US PELVIC AND TRANSVAGINAL Routine Screening and Health Maintenance Optometry: No Dentist: Yes , [facility] dental IMMs: pt reports her immunizations are UTD, plans to bring records to f/u. 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 I, Vee Hassan MD,, have reviewed the resident's note and agree with the assessment & plan of care as documented above. documented in this encounter Miscellaneous Notes * Assessment & Plan Note - Arlet Sawyer CNP - 07/15/2024 2:37 PM EST Associated Problem(s): Attention deficit hyperactivity disorder (ADHD) Utilized adult ADHD self reporting tool via UpToDate which was positive for ADHD symptoms Also based on physical exam and hx, pt appears to have ADHD As a child pt was taking concerta Will trial concerta at initial dose F/u in 1 month * Assessment & Plan Note - Arlet Sawyer CNP - 07/15/2024 2:35 PM EST Associated Problem(s): Allergies She has noticed an increase in sensitivity to certain foods and products as of lately Per pt would like referral to pai gow manager for allergy testing, referral placed * Assessment & Plan Note - Arlet Sawyer CNP - 07/15/2024 2:34 PM EST Associated Problem(s): Family history of sickle cell anemia Referral placed to genetics for genetic testing * Assessment & Plan Note - Arlet Sawyer CNP - 07/15/2024 2:34 PM EST Associated Problem(s): Hearing loss of right ear Physical exam wnl Referral to audiology for hearing test placed * Assessment & Plan Note - Arlet Sawyer CNP - 07/15/2024 2:33 PM EST Associated Problem(s): Anxiety Per pt and per exam and hx, anxiety seems to be related to lifestyle changes and stress, no SI or HI at this time Discussed various medications and resources for mh Pt declines in office consult Pt would like to be referred to for telemedicine therapy services * Assessment & Plan Note - Arlet Sawyer CNP - 07/15/2024 2:32 PM EST Associated Problem(s): Healthcare maintenance Obtaining routine blood work today Pt will bring IMM record to f/u Pt due for pap smear Dental: UTD Eye: referral placed for routine exam * Assessment & Plan Note - Arlet Sawyer CNP - 07/15/2024 2:31 PM EST Associated Problem(s): Encounter for tobacco use cessation counseling Pt motivated to quit and would like medication for cessation Discussed patch and gum Pt unsure of which she would like try but is leaning more towards patch Advised pt I will send patch to use daily to promote adherence and have gum on hand in case she wants to try for prn craving control * Assessment & Plan Note - Arlet Sawyer CNP - 07/15/2024 2:29 PM EST Associated Problem(s): Encounter for initial prescription of contraceptive pills Hcg negative For contraceptive counseling today, we [...] try OCP method. We discussed correct method useand indications for emergency contraceptive use. They can follow up at any time to discuss their contraceptive options, side effects they're experiencing, or to switch methods. EC rx sent in. * Assessment & Plan Note - Arlet Sawyer CNP - 07/15/2024 2:27 PM EST Associated Problem(s): Encounter for screening examination for sexually transmitted disease Ordered routine STI/screening Discussed safe sexual practices and sent script for OCPs and EC * Assessment & Plan Note - Arlet Sawyer CNP - 07/15/2024 2:27 PM EST Associated Problem(s): Dermatitis Pt declines changes in soaps or detergents, she uses unscented products She has noticed an increase in sensitivity to certain foods and products as of lately Will send topical steroid cream for itching and inflammation, plan to refer to derm at f/u if rash persists Will refer to allergy for allergy testing * Assessment & Plan Note - Arlet Sawyer CNP - 07/15/2024 2:24 PM EST Associated Problem(s): Irregular periods Discussed reasons for period irregularity as a multifactorial condition, stress and fluctuations inhormonal levels may cause changes in menses. Period was regular this month. Will obtain labs- see orders as well as pelvic/transvaginal ultrasound to rule out structural causes of irregular bleeding Discussed contraceptive methods with patient and patient would like to start OCPs for controland period regulation F/u in 1 month * Assessment & Plan Note - Arlet Sawyer CNP - 07/15/2024 2:22 PM EST Associated Problem(s): Vaginal burning Will obtain U/A today at lab along with other ordered lab work Obtaining routine STI/screening d/t to multiple instances of UPI with same partner F/u for pap smear next month documented in this encounter Plan of Treatment Upcoming Encounters Date Type Department Care Team (Late st Contact Info) Description 08/05/2024 10:00 AM EDT Procedure Visit [facility] [address] [place] [address] Arlet Sawyer CNP [address] [place] [address] Scheduled Orders Name Type Priority Associated Diagnoses Orde r Schedule Urinalysis, Complete, with Reflex to Culture Lab Routine Vaginal burning Expected: 07/15/2024 (Approximate), Expires: 07/15/2025 US PELVIC AND TRANSVAGINAL Imaging Routine Irregular periods Expected: 07/15/2024, Expires: 07/15/2025 Scheduled Referrals Name Type Priority Associated Diagnoses Orde r Schedule Referral to Behavioral Health Outpatient Referral Routine Anxiety Expected: 07/15/2024 (Approximate), Expires: 07/15/2025 Referral to Audiology Outpatient Referral Routine Hearing loss of right ear, unspecified hearing loss type Expected: 07/15/2024 (Approximate), Expires: 07/15/2025 Referral to Genetics Outpatient Referral Routine Family history of sickle cell anemia Expected: 07/15/2024 (Approximate), Expires: 07/15/2025 Referral to Allergy Outpatient Referral Routine Allergy, initial encounter Expected: 07/15/2024 (Approximate), Expires: 07/15/2025 Referral to [facility] Outpatient Referral Routine Healthcare maintenance Expected: 07/15/2024 (Approximate), Expires: 07/15/2025 documented as of this encounter Procedures Procedure Name Priority Date/Time Associated Diagnosis [...] for screening examination for sexually transmitted disease documented in this encounter Results * TSH W/Reflex to FT4 (07/15/2024 1:41 PM EST) TSH reflex Free T4 1.09 0.32 - 4.0 uIU/mL [facility] Blood Venous blood specimen / Unknown 07/15/2024 1:41 PM EST 07/15/2024 4:20 PM EST Arlet Sawyer [employer] LAB BLOOD ORDERABLES Katya l Result [facility] [address] [place], [place] [phone] * (ABNORMAL) CBC auto differential (07/15/2024 1:41 PM EST) White Blood Count 10.5 4.8 - 10.8 X10*3/uL [facility] Red Blood Count 4.97 4.20 - 5.50 X10*6/uL [facility] Hemoglobin 13.4 12.0 - 16.0 g/dl [facility] Hematocrit 40.6 37.0 - 47.0 % [facility] Mean Corpuscular Volume 81.7 80.0 - 98.0 fL [facility] Mean Corpuscular Hemoglobin 27.0 27.0 - 33.0 pg [facility] Mean Corpuscular HGB Conc 33.0 31.0 - 35.0 g/dl [facility] Red Cell Distribution Width 13.9 11.0 - 16.0 % [facility] Platelet Count 282 160 - 400 X10*3/uL [facility] Mean Platelet Volume 9.0(L) 9.4 - 12.3 fL [facility] Neutrophils Percent Auto 65.3 45 - 73 % [facility] Imm Gran Pct Auto 0.4 0.0 - 0.4 % [facility] Lymphocytes Percent Auto 27.8 20 - 40 % [facility] Monocytes Percent Auto 5.6 2 - 11 % [facility] Eosinophils Percent Auto 0.6 0 - 4 % [facility] Basophils Percent Auto 0.3 0 - 2 % [facility] NRBC Pct Auto 0.0 0.0 - 0.2 /100WBC [facility] Neutrophils Absolute Auto 6.9 2.0 - 8.3 x10*3/uL [facility] Imm Gran Abs Auto 0.04(H) 0.00 - 0.03 X10*3/uL [facility] Lymphocytes Absolute Auto 2.9 1.2 - 4.9 X10*3/uL [facility] Monocytes Absolute Auto 0.6 0.1 - 1.2 X10*3/uL [facility] Eosinophils Absolute Auto 0.1 0.0 - 0.4 X10*3/uL [facility] Basophils Absolute Auto 0.0 0.0 - 0.2 X10*3/uL [facility] NRBC Abs Auto 0.000 0.0 - 0.012 X10*3/uL [facility] Blood Venous blood specimen / Unknown 07/15/2024 1:41 PM EST 07/15/2024 4:20 PM EST [facility] LAB BLOOD ORDERABLES Katya l Result Performing Organization Address City/[facility]/ZIP Co de Phone Number [facility] [address] [place] [phone] * Hepatitis C Antibody with Reflex to HCV, RNA, Quantitative, Real-Time PCR (07/15/2024 1:41 PM EST) [facility] Hepatitis C Antibody Nonreactive Nonreactive [facility] Comment:Antibodies to HCV no t detected; does not exclude early acuteHCV infection. Blood Venous blood specimen / Unknown 07/15/2024 1:41 PM EST 07/15/2024 4:20 PM EST [facility] LAB BLOOD ORDERABLES Katya l Result Performing Organization Address City/[facility] Co de Phone Number [facility] [address] [place] [phone] * HIV-1/2 Antigen and Antibodies, Fourth Generation, with Reflexes (07/15/2024 1:41 PM EST) [facility] HIV AB/AG Nonreactive Nonreactive [facility] Comment:HIV-1 p24 Ag and/or HIV-1/HIV-2 Ab not detected.A test result that is nonreactive does not exclude thepossibility of exposure to or infection with HIV-1 and/orHIV-2. Nonreactive results in this assay for individualswith prior exposure to HIV-1 and/or HIV-2 may be due toantigen and antibody levels that are below the limit ofdetection of this assay.The Samplesaint HIV Ag/Ab Combo assay result andsupplemental assay results should be interpreted inconjunction with the patient's clinical presentation,history and other laboratory results. If the results areinconsistent with clinical evidence, additional testing issuggested to confirm the result. Blood Venous blood specimen / Unknown 07/15/2024 1:41 PM EST 07/15/2024 4:20 PM EST [facility] LAB BLOOD ORDERABLES Katya l Result [facility] [address] [place] [phone] * POCT Urine (07/15/2024 10:24 AM EST) Pathologist [facility] Preg Test, Ur Negative Negative, Indeterminate, None Detected, Invalid, Specimen unsatisfactory for evaluation, Weakly Positive QC Media Lot # [id number] Lot# Expiration Date [id number] Urine 07/15/2024 10:2 4 AM EST [facility] POINT OF CARE TEST ENTER/ EDIT ORDERABLES Final Result documented in this encounter Visit Diagnoses Diagnosis Encounter for screening examination for sexually transmitted disease- Primary Encounter for initial prescription of contraceptive pills Dermatitis Contact dermatitis and other eczema, due to unspecified cause Encounter for tobacco use cessation counseling Healthcare maintenance Anxiety Anxiety state, unspecified Hearing loss of right ear, unspecified hearing loss type Family history of sickle cell anemia Family history of other blood disorders Allergy, initial encounter Attention deficit hyperactivity disorder (ADHD), unspecified ADHD type Vaginal burning Other specified symptom associated with female genital organs Irregular periods documented in this encounter Additional Health Concerns Assessment Noted Time PHQ-9 Depression Total Score: 21 025 10:22 AM EST documented as of this encounter Care Teams Shift Nurse Manager Relationship Specialty Start Date End Date Arlet Sawyer CNP [address] [place] [address] PCP - General Family Medicine 07/15/24 documented as of this encounter
--- OUTSIDE RECORDS SUMMARY | 2024-07-30 19:01 | XMS_ITS | Encounter Summary ---
Author Organization [employer] Address [address] [place] [address] [place] [address] Care Team Providers Care Press Clipper Name Role Phone Unavailable Primary Care Provider Unavailabl e Reason for Visit * Reason Comments Filling Encounter Details Date Type Department Care Team ([facility] Contact Info) Description 07/03/2024 10:00 AM EST Office Visit [facility] ADULT [facility] [address] [place] [address] Ortega Castano [address] [place] [address] Social History Tobacco Use Types Packs/Day Years [...] Sign Reading Time Taken Comments Blood Pressure 115/72 07/03/2024 10:04 AM EST Pulse - - Temperature - - Respiratory Rate - - Oxygen Saturation - - Inhaled Oxygen Concentration - - Weight - - Height - - Body Mass Index - - documented in this encounter Progress Notes * Ortega Castano - 07/03/2024 10:00 AM EST Dental procedures in this visit D2391 - RESTORATIVE - RESIN-BASED COMPOSITE RESTORATIONS - DIRECT - RESIN-BASED COMPOSITE - ONE SURFACE, POSTERIOR 2 O (Completed) Service provider: Ortega Castano Billing provider: Zack Salinas DMD Patient ID: Amisha Elliott is a 29 y.o. female. Time Out: Date: 07/03/2024 Location: [facility] Tooth: #2 Procedure: Religious Verified the above with patient, senior agricultural assistant, and provider. Confirmed via patient's chart, intraorally and by radiographs. Casting Supervisor: not applicable Composite confucianism done on # [address] Ortega Castano Risk, benefits, and alternatives discussed with the patient. CONSENT FORM INITIALED & SIGNED BY THE PATIENT AND COUNTERSIGNED BY Dr. Ortega Castano Medical history: Reviewed in EHR Vitals: Blood pressure 115/72. Allergies: Reviewed in EHR Medications: Reviewed in EHR ASA 1 - LA: 20% topical benzocaine; Local infiltration with 1 carpule 4% septocaine/articaine 1:100,000 epinephrine - Existing confucianism and recurrent decay removed - Desensitizer: Gluma - Base: LimeLite - Etching done using 37% phosphoric acid. - demurrage agent applied. - Composite confucianism done using Filtek body/flowable composite, shade A2 - Anatomy and margins adjusted - Occlusion checked with articulating paper - Necessary reductions made. - Religious smoothed and polished. - Post op instructions given Patient satisfied, left in stable condition Patient made aware possible post op sensitivity NV: Karl Provider: Dr. Ortega Castano Imaging Administrator: Geetha Ventura Supervising dentist: Dr. Salinas * Zack Salinas DMD - 07/03/2024 10:00 AM EST I have reviewed the documentation and dental procedures made by the rendering provider, Ortega Castano DDS, and approve their chart entries for this visit. Zack Salinas DMD documented in this encounter Plan of Treatment Upcoming Encounters Date Type Department Care Team (Late st Contact Info) Description 08/05/2024 10:00 AM EDT Procedure Visit [facility] [address] [place] [address] Arlet Sawyer CNP [address] [place] [address] documented as of this encounter Procedures Procedure Name Priority Date/Time Associated Diagnosis Comments 2 O RESIN-BASED COMPOSITE - 1 SURF, POSTERIOR Routine 07/03/2024 10:00 AM EST documented in this encounter Visit Diagnoses Not on filedocumented in this encounter
--- OUTSIDE RECORDS SUMMARY | 2024-07-30 19:01 | XMS_ITS | Encounter Summary ---
Author Organization [employer] Address [address] [facility] [place] [address] Care Team Providers Care Resort Keeper Name Role Phone Unavailable Primary Care Provider Unavailabl e Reason for Visit * Reason Comments Filling Encounter Details Date Type Department Care Team ([facility] Contact Info) Description 07/02/2024 11:00 AM EST Office Visit [facility] ADULT DENTAL [address] [place] [address] Ortega Castano [address] [place] [address] Social History Tobacco Use Types Packs/Day Years [...] AM EDT documented as of this encounter Progress Notes * Ortega Castano - 07/02/2024 11:00 AM EST Dental procedures in this visit D2392 - RESTORATIVE - RESIN-BASED COMPOSITE RESTORATIONS - DIRECT - RESIN-BASED COMPOSITE - TWO SURFACES, POSTERIOR 15 LO (Completed) Service provider: Ortega Castano Billing provider: Lance Can DDS D1330 - ORAL HYGIENE INSTRUCTIONS (Completed) Service provider: Ortega Castano Billing provider: Lance Can DDS Patient ID: Amisha Elliott is a 29 y.o. female. Time Out: Date: 07/02/2024 Location: [facility] Tooth: #15 Procedure: Mormon Verified the above with patient, administrative assistant office manager, and provider. Confirmed via patient's chart, intraorally and by radiographs. Script Developer: not applicable Composite muslim done on # [address] Ortega Castano Risk, benefits, and alternatives discussed with the patient. CONSENT FORM INITIALED & SIGNED BY THE PATIENT AND COUNTERSIGNED BY Dr. Ortega Castano Medical history: Reviewed in EHR Vitals: There were no vitals taken for this visit. Allergies: Reviewed in EHR Medications: Reviewed in EHR ASA 1 - LA: 20% topical benzocaine; Local infiltration with 1 carpule 4% septocaine/articaine 1:100,000 epinephrine - Existing muslim and recurrent decay removed - Mylar strip/Matrix band and wedge used as needed - Desensitizer: Gluma - Base: LimeLite - Etching done using 37% phosphoric acid. - delivery agent applied. - Composite muslim done using Filtek body/flowable composite, shade A2 - Anatomy and margins adjusted - Occlusion checked with articulating paper - Necessary reductions made. - Mormon smoothed and polished. - Post op instructions given Patient satisfied, left in stable condition Patient made aware possible post op sensitivity NV: Karl Provider: Dr. Ortega Castano Rfid Systems Engineer: Geetha Ventura Supervising dentist: Dr. Machado * Lance Can DDS - 07/02/2024 11:00 AM EST Reviewed and signed. documented in this encounter Plan of Treatment Upcoming Encounters Date Type Department Care Team (Late st Contact Info) Description 08/05/2024 10:00 AM EDT Procedure Visit [facility] [address] [place] [phone] Arlet Sawyer CNP [address] [place], [place] [phone] Scheduled Orders Name Type Priority Associated Diagnoses Orde r Schedule 31 MOL 31 MOL RESTORATIVE - RESIN-BASED COMPOSITE RESTORATIONS - DIRECT - RESIN-BASED COMPOSITE - THREE SURFACES, POSTERIOR Dental Routine [address] arting 07/02/2024 documented as of this encounter Procedures Procedure Name Priority Date/Time Associated Diagnosis Comments 15 LO RESIN-BASED COMPOSITE - 2 SURF, POSTERIOR Routine 07/02/2024 11:00 AM EST ORAL HYGIENE INSTRUCTIONS Routine 2024 11:00 AM EST documented in this encounter Visit Diagnoses Not on filedocumented in this encounter
--- OUTSIDE RECORDS SUMMARY | 2024-07-30 19:01 | XMS_ITS | Encounter Summary ---
Author Organization [employer] Address 75 [facility] 7 [place] [address] Care Team Providers Care Lookback Coordinator Name Role Phone Unavailable Primary Care Provider Unavailabl e Reason for Visit * Reason Comments Pre-visit Planning SDOH unable to reach LVM Encounter Details Date Type Department Care Team ([facility] Contact Info) Description 07/07/2024 Patient Outreach [facility] [address] [place] [address] Arlet Sawyer, [facility] [address] [place] [address] Pre-visit Planning (SDOH unable to reach LVM) Social History Tobacco Use Types Packs/Day Years [...] as of this encounter Progress Notes * Lilia Alonzo - 07/07/2024 11:44 AM EST MICHAEL Fu placed outbound call to patient to complete pre-visit planning. No answer at this time. Patient name and were not confirmed. CC left voicemail requesting return call. Direct contactinformation provided. documented in this encounter Plan of Treatment Upcoming Encounters Date Type Department Care Team ([facility] Contact Info) Description 08/05/2024 10:00 AM EDT Procedure Visit [facility] [address] [place], [place] [phone] Arlet Sawyer CNP [address] [place] [address] documented as of this encounter Visit Diagnoses Not on filedocumented in this encounter
== END 2024-07-30 15:35 | disposition home or self-care (01) ==
LOC: HO.US 15:34
DX: N92.6 Irregular menstruation, unspecified (principal)
CPT/HCPCS: 76830; 76856

== ENCOUNTER → 2024-07-30 15:41 | Outpatient (BNV) | payer MEDICAID, SELFPAY | PROVIDERS: Visit Provider Radiology Diagnostic Radiology | DX: N92.6 Irregular menstruation, unspecified (principal) | CPT/HCPCS: 76830; 76856 ==

== ENCOUNTER 2024-08-03 11:06 | Outpatient (REF) | payer MEDICAID, SELFPAY ==
--- OUTSIDE RECORDS SUMMARY | 2024-08-03 12:35 | XMS_ITS | Encounter Summary ---
Author Organization [employer] Address 75 [facility] 7 [place] [address] Care Team Providers Care Engineer First Assistant Name Role Phone Arlet Sawyer CNP Primary Care Provider [phone] [phone] Reason for Visit * Reason Onset Date Comments Med Refill 07/16/2024 Encounter Details Date Type Department Care Team ([facility] st Contact Info) Description 07/16/2024 Refill [facility] [address] [place] [address] Arlet Sawyer CNP [address] [place] [address] Attention deficit hyperactivity disorder (ADHD), unspecified ADHD [...] Description 08/05/2024 10:00 AM EDT Procedure Visit [facility] [address] [place] [address] Arlet Sawyer CNP [address] [place] [address] documented as of this encounter Visit Diagnoses Diagnosis Attention deficit hyperactivity disorder (ADHD), unspecified ADHD type documented in this encounter Additional Health Concerns Assessment Noted Time PHQ-9 Depression Total Score: 21 025 10:22 AM EST documented as of this encounter Care Teams Engineer First Assistant Relationship Specialty Start Date End Date Arlet Sawyer CNP [address] [place] [address] PCP - General Family Medicine 07/15/24 documented as of this encounter
--- OUTSIDE RECORDS SUMMARY | 2024-08-03 12:35 | XMS_ITS | Encounter Summary ---
Author Organization [employer] Address 75 [facility] 7t [place] [address] Care Team Providers Care Table Runner Name Role Phone Arlet Sawyer MIN Primary Care Provider [phone] [phone] Encounter Details Date Type Department Care Team [...] Description 08/05/2024 10:00 AM EDT Procedure Visit [facility] [address] [place] [address] Arlet Sawyer CNP [address] [place] [address] documented as of this encounter Visit Diagnoses Not on filedocumented in this encounter Additional Health Concerns Assessment Noted Time PHQ-9 Depression Total Score: 21 025 10:22 AM EST documented as of this encounter Care Teams Table Runner Relationship Specialty Start Date End Date Arlet Sawyer CNP [address] [place], [place] [phone] PCP - General Family Medicine 07/15/24 documented as of this encounter
--- OUTSIDE RECORDS SUMMARY | 2024-08-03 12:35 | XMS_ITS | Encounter Summary ---
Author Organization [employer] [facility] Address [address] [place] [address] [place] [address] Care Team Providers Care Typing Bookkeeper Name Role Phone Arlet Sawyer CNP Primary Care Provider +1 [phone] Encounter Details Date Type Department Care Team (Latest Contact Info) Description 08/05/2020 Abstract [facility] CONVERSIONS Dental, Provider, DDS Social History Tobacco [...] Description 08/05/2024 10:00 AM EDT Procedure Visit [facility] [address] [place] [address] Arlet Sawyer CNP [address] [place] [address] documented as of this encounter Visit Diagnoses Not on filedocumented in this encounter Care Teams Typing Bookkeeper Relationship Specialty Start Date End Date Arlet Sawyer CNP [address] [place] [address] PCP - General Family Medicine 07/15/24 documented as of this encounter
--- OUTSIDE RECORDS SUMMARY | 2024-08-03 12:35 | XMS_ITS | Encounter Summary ---
Author Organization [employer] Address 75 [facility] 7 [place] [address] Care Team Providers Care Diagrammer And Seamer Name Role Phone Arlet Sawyer CNP Primary Care Provider [phone] [phone] Reason for Visit * Reason Onset Date Comments Chart Prep 07/16/2024 Encounter Details Date Type Department Care Team ([facility] st Contact Info) Description 07/16/2024 Telephone [facility] [address] [place] [address] Arlet Sawyer CNP [address] [place] [address] Chart Prep Social History Tobacco Use Types [...] Description 08/05/2024 10:00 AM EDT Procedure Visit [facility] [address] [place] [address] Arlet Sawyer CNP [address] [place] [address] documented as of this encounter Visit Diagnoses Not on filedocumented in this encounter Additional Health Concerns Assessment Noted Time PHQ-9 Depression Total Score: 21 025 10:22 AM EST documented as of this encounter Care Teams Diagrammer And Seamer Relationship Specialty Start Date End Date Arlet Sawyer CNP [address] [place] [address] PCP - General Family Medicine 07/15/24 documented as of this encounter
--- OUTSIDE RECORDS SUMMARY | 2024-08-03 12:35 | XMS_ITS | Encounter Summary ---
Author Organization [employer] [facility] Address [address] [place] [address] [place] [address] Care Team Providers Care Pododermatologist Name Role Phone Arlet Sawyer CNP Primary Care Provider [phone] [phone] Encounter Details Date Type Department Care Team (Late st Contact Info) Description 10/09/2022 Abstract [facility] ADULT DENTAL [address] [place] [address] Сергей Kunz DMD [address] [place] [address] Social History Tobacco Use Types Packs/Day Years [...] Procedure Visit [facility] [address] [place] [address] Arlet Sawyer CNP [address] [place] [address] documented as of this encounter Visit Diagnoses Not on filedocumented in this encounter Care Teams Pododermatologist Relationship Specialty Start Date End Date Arlet Sawyer CNP [address] [place] [address] PCP - General Family Medicine 07/15/24 documented as of this encounter
--- OUTSIDE RECORDS SUMMARY | 2024-08-03 12:36 | XMS_ITS | Encounter Summary ---
Author Organization [employer] Address 75 [facility] 7t [place] [address] Care Team Providers Care Outsole Compressor Name Role Phone Arlet Sawyer CNP Primary Care Provider [phone] [phone] Encounter Details Date Type Department Care Team (Late st Contact Info) Description 07/17/2024 Orders Only [facility] [address] [place] [address] Arlet Sawyer CNP [address] [place] [address] Attention deficit hyperactivity disorder (ADHD), unspecified ADHD [...] Description 08/05/2024 10:00 AM EDT Procedure Visit [facility] [address] [place] [address] Arlet Sawyer, RESIDENTIAL FIELD MANAGER [address] [place] [address] documented as of this encounter Procedures Procedure Name Priority Date/Time Associated Diagnosis Comments US PELVIS TRANSVAGINAL Routine 07/30/2024 3:41 PM EST documented in this encounter Results * US Pelvis Transvaginal (07/30/2024 3:41 PM EST) Anatomical Region Laterality Modality Pelvis Ultrasound 07/30/2024 3:41 PM EST Narrative 08/03/2024 7:40 AM EDT ? [facility] ?[address] ?[place] [address] ? Ultrasound Report ? Signed ? Patient: Earl,Amisha ?MR#: [id number] ?? [id number] ? : 1995 ?Acct:[id number] ? Age/Sex: 29 / F ?ADM Date: 03/06/25 ? Loc: HO.US ? Attending Dr: Arlet Sawyer CANDY DIPPER ? Ordering Physician: Arlet Sawyer ?? Date of Service: 07/30/24 ?? Procedure(s): US pelvic and transvaginal ?? Accession Number(s): [id number] ? cc: Arlet Sawyer ? EXAMINATION: ??US PELVIS TRANSABDOMINAL AND TRANSVAGINAL ? HISTORY: IRREGULAR PERIODS ? COMPARISON: There are no prior studies for comparison. ? TECHNIQUE: ? Transabdominal and endovaginal real-time 2D patel-scale ultrasound was ?? performed. ?? Color Doppler was also performed. ? FINDINGS: ? Uterus: ??The uterus is normal in size, measuring 8.2 x 5.2 x 5.5 cm. ? Myometrium has a normal echotexture. ??There is a right-sided fibroid ?? measuring 1.3 x 1.1 x 1.2 cm. ? Endometrium: ??The endometrial stripe measures 10 mm in thickness. ? Right ovary: ??The right ovary measures 6.3 x 1.0 x 1.1 cm. ??The right ?? ovary demonstrates an elongated shape. There is an echogenic structure ?? adjacent to the right ovary which may represent a loop of bowel or a ?? fallopian tube filled with debris. ? Left ovary: ?? The left ovary measures 4.9 x 2.3 x 2.1 cm. ??A 9 mm ?? hypoechoic structure may represent a corpus luteum. There is a 1.9 x ?? 2.2 x 1.6 cm cyst adjacent to the left ovary with a paraovarian cyst. ? Color Doppler analysis of the bilateral ovarian arteries and veins is ?? normal. ? Pelvic fluid: There is a small amount of free fluid in the pelvis. ? US/US pelvic and transvaginal ?? IMPRESSION: ? 1. 1.2 x 1.1 x 1.2 cm right sided uterine fibroid. ? 2. Echogenic structure adjacent to the right ovary which may represent ?? a loop with bowel or fallopian tube filled with debris. ? 3. 1.9 x 2.2 x 1.6 cm left paraovarian cyst. ? Electronically signed by: ??Gabriel Dietz MD ??08/03/2024 07:38 AM EDT ?? RP ? Dictated By: ?Gabriel Dietz MD ? Signed By: ?<Electronically signed by Gabriel Dietz MD in OV> ?08/03/2438 ? DD/ 1541 ? TD/TT: 07/30/24 1604 ? Prepress Manager: ? Procedure Note Donotuseinterpreter, Image - 08/03/2024 [place] [address] Ultrasound Report Signed Patient: Antonia Elliott#: [id number] : 1995Acct:[id number] Age/Sex: Date: 07/30/24 Loc: HO.US Attending Dr: Arlet Sawyer CANDY DIPPER Ordering Physician: Arlet Sawyer Date of Service: 07/30/24 Procedure(s): US pelvic and transvaginal Accession Number(s): [id number] cc: Arlet Sawyer EXAMINATION: US PELVIS TRANSABDOMINAL AND TRANSVAGINAL HISTORY: IRREGULAR PERIODS COMPARISON: There are no prior studies for comparison. TECHNIQUE: Transabdominal and endovaginal real-time 2D patel-scale ultrasound was performed. Color Doppler was also performed. FINDINGS: Uterus: The uterus is normal in size, measuring 8.2 x 5.2 x 5.5 cm. Myometrium has a normal echotexture. There is a right-sided fibroid measuring 1.3 x 1.1 x 1.2 cm. Endometrium: The endometrial stripe measures 10 mm in thickness. Right ovary: The right ovary measures 6.3 x 1.0 x 1.1 cm. The right ovary demonstrates an elongated shape. There is an echogenic structure adjacent to the right ovary which may represent a loop of bowel or a fallopian tube filled with debris. Left ovary: The left ovary measures 4.9 x 2.3 x 2.1 cm. A 9 mm hypoechoic structure may represent a corpus luteum. There is a 1.9 x 2.2 x 1.6 cm cyst adjacent to the left ovary with a paraovarian cyst. Color Doppler analysis of the bilateral ovarian arteries and veins is normal. Pelvic fluid: There is a small amount of free fluid in the pelvis. US/US pelvic and transvaginal IMPRESSION: 1. 1.2 x 1.1 x 1.2 cm right sided uterine fibroid. 2. Echogenic structure adjacent to the right ovary which may represent a loop with bowel or fallopian tube filled with debris. 3. 1.9 x 2.2 x 1.6 cm left paraovarian cyst. Electronically signed by: Gabriel Dietz MD 08/03/2024 07:38 AM EDT Dictated By: Gabriel Dietz MD Signed By: <Electronically signed by Gabriel Dietz MD in OV> 08/03/24 0738 DD/ 1541 TD/TT: 07/30/24 1604 Prepress Manager: us Arlet Saweyr CNP IMG US PROCEDURES Edited Result - Final documented in this encounter Visit Diagnoses Diagnosis Attention deficit hyperactivity disorder (ADHD), unspecified ADHD type- Primary documented in this encounter Additional Health Concerns Assessment Noted Time PHQ-9 Depression Total Score: 21 025 10:22 AM EST documented as of this encounter Care Teams Outsole Compressor Relationship Specialty Start Date End Date Arlet Sawyer CNP [address] [place] [address] PCP - General Family Medicine 07/15/24 documented as of this encounter
--- OUTSIDE RECORDS SUMMARY | 2024-08-03 12:36 | XMS_ITS | Encounter Summary ---
Author Organization [employer] Address 75 [facility] 7 [place] [address] Care Team Providers Care Exploitation Analyst Name Role Phone Unavailable Primary Care Provider Unavailabl e Reason for Visit * Reason Onset Date Comments Chart prep 07/14/2024 Encounter Details Date Type Department Care Team ([facility] st Contact Info) Description 07/14/2024 Telephone [facility] [address] [place] [address] Arlet Sawyer CNP [address] [place] [address] Chart prep Social History Tobacco Use Types [...] Telephone Encounter - Joe Gruber [place] - 07/14/2024 10:42 AM EST [...] Description 08/05/2024 10:00 AM EDT Procedure Visit [facility] [address] [place] [address] Arlet Sawyer CNP [address] [place] [address] documented as of this encounter Visit Diagnoses Not on filedocumented in this encounter
--- OUTSIDE RECORDS SUMMARY | 2024-08-03 12:36 | XMS_ITS | Encounter Summary ---
Author Organization [employer] Address [address] [facility] 7t [place] [address] Care Team Providers Care Carriage Rider Name Role Phone Arlet Sawyer CNP Primary Care Provider +1 [phone] Encounter Details Date Type Department Care Team (Late st Contact Info) Description 07/15/2024 Telephone [facility] [address] [place] [address] Arlet Sawyer CNP [address] [place] [address] Social History Tobacco Use Types Packs/Day Years [...] Description 08/05/2024 10:00 AM EDT Procedure Visit [facility] [address] [place] [address] Arlet Sawyer CNP [address] [place] [address] documented as of this encounter Visit Diagnoses Not on filedocumented in this encounter Additional Health Concerns Assessment Noted Time PHQ-9 Depression Total Score: 21 025 10:22 AM EST documented as of this encounter Care Teams Carriage Rider Relationship Specialty Start Date End Date Arlet Sawyer CNP [address] [place] [address] PCP - General Family Medicine 07/15/24 documented as of this encounter
--- OUTSIDE RECORDS SUMMARY | 2024-08-03 12:36 | XMS_ITS | Encounter Summary ---
Author Organization [employer] Address [address] [facility] 7 [place] [address] Care Team Providers Care Cutter Hot Knife Name Role Phone Unavailable Primary Care Provider Unavailabl e Reason for Visit * Reason Comments Pre-visit Planning SDOH unable to reach LVM Encounter Details Date Type Department Care Team ([facility] Contact Info) Description 07/07/2024 Patient Outreach [facility] [address] [place] [address] Arlet Sawyer, [facility] [address] [place] [address] Pre-visit Planning (SDOH unable to reach LVM) [...] Upcoming Encounters Date Type Department Care Team ([facility] Contact Info) Description 08/05/2024 10:00 AM EDT Procedure Visit [facility] [address] [place], [place] [phone] Arlet Sawyer CNP [address] [place] [address] documented as of this encounter Visit Diagnoses Not on filedocumented in this encounter
--- OUTSIDE RECORDS SUMMARY | 2024-08-03 12:36 | XMS_ITS | Clinical Summary ---
Author Organization [employer] Address 75 [facility] 7 [place] [address] Care Team Providers Care Fuller Brush Man Name Role Phone Arlet Sawyer MIN Primary Care Provider [phone] [phone] Allergies No known active allergies Medications * [...] lately Per pt would like referral to sewer builder for allergy testing, referral placed Attention deficit [...] Department Care Team Description 07/17/2024 Orders Only [facility] [address] [place] [address] Arlet Sawyer CNP Attention deficit hyperactivity disorder (ADHD), unspecified ADHD type (Primary Dx) 07/16/2024 Refill [facility] [address] [place] [address] Arlet Sawyer CNP Attention deficit hyperactivity disorder (ADHD), unspecified ADHD type 07/16/[address] [address] Arlet Sawyer CNP Chart Prep 07/15/2024 10:00 AM EST Office Visit [address] [address] Arlet Sawyer CNP Encounter for screening examination for sexually transmitted disease (Primary Dx); Encounter for initial prescription of contraceptive pills; Dermatitis; Encounter for tobacco use cessation counseling; Healthcare maintenance; Anxiety; Hearing loss of right ear, unspecified hearing loss type; Family history of sickle cell anemia; Allergy, initial encounter; Attention deficit hyperactivity disorder (ADHD), unspecified ADHD type; Vaginal burning; Irregular periods 07/15/[address] [address] Arlet Sawyer CNP 07/15/2024 Travel 07/14/[address] [address] Arlet Sawyer CNP Chart prep 07/07/2024 Patient Outreach [facility] MED [facility] PEDS [address] [place] [address] Arlet Sawyer CNP Pre-visit Planning ([facility] unable to reach [place]) 07/07/2024 Telephone [facility] [address] [place] [phone] Arlet Sawyer CNP Chart Prep 07/03/2024 10:00 AM EST Office Visit [facility] ADULT DENTAL [address] [place] [address] Ortega Castano 07/02/2024 11:00 AM EST Office Visit [facility]ULT DENT[facility] [address] [place] [address] Ortega Castano 06/17/2024 9:30 AM EST Office Visit [facility] ADULT DENT[facility] [address] [place] [address] Zack Salinas DMD Severe dental caries (Primary Dx) 06/16/2024 2:00 PM EST Office Visit [facility] ADULT DENTAL [address] [place] [address] Janie Bryant DMD 05/12/[address] [address] Guerline Bolton NP Appointment Request; New Patient appt. 05/11/2024 Telephone [facility] [address] [place] [address] Aida Tello MA Chart Prep 05/05/2024 Patient Outreach [facility] PEDIATR[facility] [address] [place] [address] Guerline Bolton NP Pre-visit Planning (Pre-visit planning [...] AM EDT Procedure Visit [facility] [address] [place] [phone] Arlet Sawyer, [facility] [address] [place], [place] [phone] Health Maintenance Due Date Last Done Comments [...] Associated Diagnosis Comments US PELVIS TRANSVAGINAL Routine 3:41 PM EST TSH W/REFLEX TO FT4 Routine 07/15/2024 1 [...] Recently Relevant to Health Maintenance Results * US Pelvis Transvaginal (07/30/2024 3:41 PM EST) Anatomical Region Laterality Modality Pelvis Ultrasound 07/30/2024 3:41 PM EST Narrative 08/03/2024 7:40 AM EDT ? [facility] ?[address] ?[place] [address] ? Ultrasound Report ? Signed ? Patient: Earl,Amisha ?MR#: [id number] ?? [id number] ? : 1995 ?Acct:[id number] ? Age/Sex: 29 / F ?ADM Date: 03/06/25 ? Loc: HO.US ? Attending Dr: Alexxis Sawyer OPTHALMIC TECH ? Ordering Physician: Arlet Sawyer ?? Date of Service: 07/30/24 ?? Procedure(s): US pelvic and transvaginal ?? Accession Number(s): [id number] ? cc: Arlet Sawyer ? EXAMINATION: ??US [...] EDT ?? RP ? Dictated By: ?Gabriel Deitz MD ? Signed By: ?<Electronically signed by Gabriel Dietz MD in OV> ?08/03/24 0738 ? DD/ 1541 ? TD/TT: 07/30/24 1604 ? Color Maker: ? Procedure Note Donotsintiainterpreter, Image - 08/03/2024 [place] [address] Ultrasound Report Signed Patient: Antonia Elliott#: [id number] : 1995Acct:[id number] Age/Sex: M Date: 07/30/24 Loc: HO.US Attending Dr: Arlet Sawyer OPTHALMIC TECH Ordering Physician: Arlet Sawyer Date of Service: 07/30/24 Procedure(s): US pelvic and transvaginal Accession Number(s): [id number] cc: Arlet Sawyer EXAMINATION: US PELVIS TRANSABDOMINAL [...] 08/03/24 0738 DD/ 1541 TD/TT: 07/30/24 1604 Color Maker: [facility] AUTHORS MOTIVATIONAL IMG US PROCEDURES Edited Result - Final * TSH W/Reflex to FT4 (07/15/2024 1:41 PM EST) Pathologist [facility] [place] TSH reflex Free T4 1.09 0.32 - 4.0 uIU/mL [facility] Blood Venous blood specimen / Unknown 07/15/2024 1:41 PM EST 07/15/2024 4:20 PM EST [facility] LAB BLOOD ORDERABLES Katya l Result [facility] [address] [place] [phone] * (ABNORMAL) CBC auto differential (07/15/2024 1:41 PM EST) Pathologist [facility] [place] White Blood Count 10.5 4.8 - 10.8 X10*3/uL [facility] Red Blood Count 4.97 4.20 - 5.50 X10*6/uL [facility] Hemoglobin 13.4 12.0 - 16.0 g/dl [facility] Hematocrit 40.6 37.0 - 47.0 % [facility] Mean Corpuscular Volume 81.7 80.0 - 98.0 fL [facility] Mean Corpuscular Hemoglobin 27.0 27.0 - 33.0 pg [facility] Mean Corpuscular HGB Conc 33.0 31.0 - 35.0 g/dl [facility] Red Cell Distribution Width 13.9 11.0 - 16.0 % [facility] Platelet Count 282 160 - 400 X10*3/uL [facility] Mean Platelet Volume 9.0(L) 9.4 - 12.3 fL [facility] Neutrophils Percent Auto 65.3 45 - 73 % [facility] Imm Gran Pct Auto 0.4 0.0 - 0.4 % [facility] Lymphocytes Percent Auto 27.8 20 - 40 % [facility] Monocytes Percent Auto 5.6 2 - 11 % [facility] Eosinophils Percent Auto 0.6 0 - 4 % [facility] Basophils Percent Auto 0.3 0 - 2 % [facility] NRBC Pct Auto 0.0 0.0 - 0.2 /100WBC [facility] Neutrophils Absolute Auto 6.9 2.0 - 8.3 x10*3/uL [facility] Imm Gran Abs Auto 0.04(H) 0.00 - 0.03 X10*3/uL [facility] Lymphocytes Absolute Auto 2.9 1.2 - 4.9 X10*3/uL [facility] Monocytes Absolute Auto 0.6 0.1 - 1.2 X10*3/uL [facility] Eosinophils Absolute Auto 0.1 0.0 - 0.4 X10*3/uL [facility] Basophils Absolute Auto 0.0 0.0 - 0.2 X10*3/uL [facility] NRBC Abs Auto 0.000 0.0 - 0.012 X10*3/uL [facility] Blood Venous blood specimen / Unknown 07/15/2024 1:41 PM EST 07/15/2024 4:20 PM EST us Arlet Sawyer [employer] LAB BLOOD ORDERABLES Katya l Result [facility] [address] [place] [address] [phone] * Hepatitis C Antibody with Reflex to HCV, RNA, Quantitative, Real-Time PCR (07/15/2024 1:41 PM EST) Pathologist [facility] [place] Hepatitis C Antibody Nonreactive Nonreactive [facility] Comment:Antibodies to HCV no t detected; does not exclude early acuteHCV infection. Blood Venous blood specimen / Unknown 07/15/2024 1:41 PM EST 07/15/2024 4:20 PM EST [facility] LAB BLOOD ORDERABLES Katya l Result Performing Organization Address [facility]/ZIP Co de Phone Number [facility] [address] [place] [phone] * HIV-1/2 Antigen and Antibodies, Fourth Generation, with Reflexes (07/15/2024 1:41 PM EST) Pathologist [facility] [place] HIV AB/AG Nonreactive Nonreactive [facility] Comment:HIV-1 p24 Ag and/or HIV-1/HIV-2 Ab not detected.A test result that is nonreactive does not exclude thepossibility of exposure to or infection with HIV-1 and/orHIV-2. Nonreactive results in this assay for individualswith prior exposure to HIV-1 and/or HIV-2 may be due toantigen and antibody levels that are below the limit ofdetection of this assay.The [employer] HIV Ag/Ab Combo assay result andsupplemental assay results should be interpreted inconjunction with the patient's clinical presentation,history and other laboratory results. If the results areinconsistent with clinical evidence, additional testing issuggested to confirm the result. Blood Venous blood specimen / Unknown 07/15/2024 1:41 PM EST 07/15/2024 4:20 PM EST [facility] LAB BLOOD ORDERABLES Katya l Result Performing Organization Address [facility]/ZIP Co de Phone Number [facility] [address] [place] [phone] * POCT Urine (07/15/2024 10:24 AM EST) Preg Test, Ur Negative Negative, Indeterminate, None Detected, Invalid, Specimen unsatisfactory for evaluation, Weakly Positive QC Media Lot # [id number] Lot# Expiration Date [id number] Urine 07/15/2024 10:2 4 AM EST [facility] POINT OF CARE TEST ENTER/ EDIT ORDERABLES Final Result from Last 3 Months Insurance [facility] C3 DENTAL-[facility] MEDICAID STAND ADULT Care Teams Fuller Brush Man Relationship Specialty Start Date End Date Arlet Sawyer CNP [address] [place] [phone] PCP - General Family Medicine 07/15/24
--- OUTSIDE RECORDS SUMMARY | 2024-08-03 12:36 | XMS_ITS | Encounter Summary ---
Author Organization [employer] Address 75 [facility] [address] [facility] [place] [address] Care Team Providers Care Management Trainee Marketing Name Role Phone Unavailable Primary Care Provider Unavailabl e Reason for Visit * Reason Onset Date Comments Chart Prep 07/07/2024 Encounter Details Date Type Department Care Team ([facility] Contact Info) Description 07/07/2024 Telephone [facility] [address] [place] [phone] Arlet Sawyer CNP [address] [place] [address] Chart Prep Social History Tobacco Use Types [...] Description 08/05/2024 10:00 AM EDT Procedure Visit [facility] [address] [place], [place] [phone] Arlet Sawyer CNP [address] [place] [address] documented as of this encounter Visit Diagnoses Not on filedocumented in this encounter
--- OUTSIDE RECORDS SUMMARY | 2024-08-03 12:36 | XMS_ITS | Encounter Summary ---
Author Organization [employer] Address [address] [place] [address] 7 h Floor [address] Care Team Providers Care Road Consultant Name Role Phone Arlet Sawyer CNP Primary Care Provider [phone] [phone] Reason for Referral * Imaging (Routine) - Authorized Specialty Diagnoses / Procedures Referred By Jennifer mcguire Referred To Contact Radiology Diagnoses Irregular periods Procedures US PELVIC AND TRANSVAGINAL Arlet Sawyer CNP [address] [place] [address] Phone: tel: fax: [address] Phone: tel: fax: Referral ID Status Reason Start Date Expiration Date V isits Requested Visits Authorized [id number] Authorized 07/15/2024 07/15/2025 1 1 * Consultation (Routine) - Authorized Specialty Diagnoses / Procedures Referred By Jennifer mcguire Referred To Contact Optometry Diagnoses Healthcare maintenance Arlet Sawyer CNP [address] [place] [address] Phone: tel: fax: [facility] OPT[facility] [address] [place] [address] Phone: tel: fax: Referral ID Status Reason Start Date Expiration Date Visits Requested Visits Authorized [id number] Authorized Consult and Treat 07/15/2024 07/15/2025 1 1 * Consultation (Routine) - Authorized Specialty Diagnoses / Procedures Referred By Jennifer mcguire Referred To Contact Allergy Diagnoses Allergy, initial encounter Arlet Sawyer CNP [address] [place] [address] Phone: tel: fax: Josue Kunz MD [address] [place] [address] Phone: tel: fax: Referral ID Status Reason Start Date Expiration Date Visits Requested Visits Authorized [id number] Authorized Specialty Services Required 07/15/2024 07/15/2025 12 12 * Consultation (Routine) - Closed Specialty Diagnoses / Procedures Referred By Jennifer mcguire Referred To Contact Genetics Diagnoses Family history of sickle cell anemia Arlet Sawyer CNP [address] [place] [address] Phone: tel: fax: [facility] [address] [place], [place] Phone: tel: fax: Referral ID Status Reason Start Date Expiration Date V isits Requested Visits Authorized [id number] Closed Specialty Services Required 07/15/2024 07/15/2025 1 1 * Consultation (Routine) - Authorized Specialty Diagnoses / Procedures Referred By Jennifer mcguire Referred To Contact Audiology Diagnoses Hearing loss of right ear, unspecified hearing loss type Arlet Sawyer CNP [address] [place] [address] Phone: tel: fax: [facility] Audiology [address] 1st Floor [place], [place] Phone: tel: fax: Referral ID Status Reason Start Date Expiration Date Visits Requested Visits Authorized [id number] Authorized Specialty Services Required 07/15/2024 07/15/2025 6 6 * Consultation (Routine) - Closed Specialty Diagnoses / Procedures Referred By Jennifer mcguire Referred To Contact Behavioral Health Diagnoses Anxiety Arlet Sawyer CNP [address] [place] [address] Phone: tel: fax: Referral ID Status Reason Start Date Expiration Date V isits Requested Visits Authorized [id number] Closed Specialty Services Required 07/15/2024 07/15/2025 1 1 Reason for Visit * Reason Comments New Pt Encounter Details Date Type Department Care Team (Latest Contact Info) Description 07/15/2024 10:00 AM EST Office Visit [facility] [address] [place] [phone] Arlet Sawyer CNP [address] [place] [address] Encounter for screening examination for sexually transmitted [...] 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 Current concerns: Attention concerns, [...] CECILIA-7 Total Score: 16 (07/15/2024 10:23 AM) VEGETABLE THINNER Hx: First menses age 14, at age [...] differential TSH W/Reflex to FT4 Referral to [facility] Anxiety Current Assessment & Plan [...] lately Per pt would like referral to lead systems developer for allergy testing, referral placed Relevant Orders [...] Health Maintenance Optometry: No Dentist: Yes , [facility] dental IMMs: pt reports her immunizations are UTD, plans to bring records to f/u. Schedule f/u for pap [facility] PATENT LEATHER SORTER Attestation PATENT LEATHER SORTER Resident Attestation: Patient was seen and evaluated [...] lately Per pt would like referral to lead systems developer for allergy testing, referral placed * Assessment & Plan Note - Alret Sawyer CNP - 07/15/2024 2:34 PM EST [...] Description 08/05/2024 10:00 AM EDT Procedure Visit [facility] [address] [place] [address] Arlet Sawyer CNP [address] [place] [address] Scheduled Orders Name Type Priority [...] Expected: 07/15/2024 (Approximate), Expires: 07/15/2025 Referral to [facility] Outpatient Referral Routine Healthcare maintenance [...] Free T4 1.09 0.32 - 4.0 uIU/mL [facility] Blood Venous blood specimen / Unknown 07/15/2024 1:41 PM EST 07/15/2024 4:20 PM EST Arlet Sawyer PRODUCE MANAGER LAB BLOOD ORDERABLES Katya l Result [facility] [address] [place], [place] [phone] * (ABNORMAL) CBC auto differential (07/15/2024 1:41 PM EST) White Blood Count 10.5 4.8 - 10.8 X10*3/uL [facility] Red Blood Count 4.97 4.20 - 5.50 X10*6/uL [facility] Hemoglobin 13.4 12.0 - 16.0 g/dl [facility] Hematocrit 40.6 37.0 - 47.0 % [facility] Mean Corpuscular Volume 81.7 80.0 - 98.0 fL [facility] Mean Corpuscular Hemoglobin 27.0 27.0 - 33.0 pg [facility] Mean Corpuscular HGB Conc 33.0 31.0 - 35.0 g/dl [facility] Red Cell Distribution Width 13.9 11.0 - 16.0 % [facility] Platelet Count 282 160 - 400 X10*3/uL [facility] Mean Platelet Volume 9.0(L) 9.4 - 12.3 fL [facility] Neutrophils Percent Auto 65.3 45 - 73 % [facility] Imm Gran Pct Auto 0.4 0.0 - 0.4 % [facility] Lymphocytes Percent Auto 27.8 20 - 40 % [facility] Monocytes Percent Auto 5.6 2 - 11 % [facility] Eosinophils Percent Auto 0.6 0 - 4 % [facility] Basophils Percent Auto 0.3 0 - 2 % [facility] NRBC Pct Auto 0.0 0.0 - 0.2 /100WBC [facility] Neutrophils Absolute Auto 6.9 2.0 - 8.3 x10*3/uL [facility] Imm Gran Abs Auto 0.04(H) 0.00 - 0.03 X10*3/uL [facility] Lymphocytes Absolute Auto 2.9 1.2 - 4.9 X10*3/uL [facility] Monocytes Absolute Auto 0.6 0.1 - 1.2 X10*3/uL [facility] Eosinophils Absolute Auto 0.1 0.0 - 0.4 X10*3/uL [facility] Basophils Absolute Auto 0.0 0.0 - 0.2 X10*3/uL [facility] NRBC Abs Auto 0.000 0.0 - 0.012 X10*3/uL [facility] Blood Venous blood specimen / Unknown 07/15/2024 1:41 PM EST 07/15/2024 4:20 PM EST [facility] LAB BLOOD ORDERABLES Katya l Result Performing Organization Address City/[facility]/ZIP Co de Phone Number [facility] [address] [place] [phone] * Hepatitis C Antibody with Reflex to HCV, RNA, Quantitative, Real-Time PCR (07/15/2024 1:41 PM EST) [facility] Hepatitis C Antibody Nonreactive Nonreactive [facility] Comment:Antibodies to HCV no t detected; does not exclude early acuteHCV infection. Blood Venous blood specimen / Unknown 07/15/2024 1:41 PM EST 07/15/2024 4:20 PM EST [facility] LAB BLOOD ORDERABLES Katya l Result Performing Organization Address City/[facility] Co de Phone Number [facility] [address] [place] [phone] * HIV-1/2 Antigen and Antibodies, Fourth Generation, with Reflexes (07/15/2024 1:41 PM EST) [facility] HIV AB/AG Nonreactive Nonreactive [facility] Comment:HIV-1 p24 Ag and/or HIV-1/HIV-2 Ab not detected.A test result that is nonreactive does not exclude thepossibility of exposure to or infection with HIV-1 and/orHIV-2. Nonreactive results in this assay for individualswith prior exposure to HIV-1 and/or HIV-2 may be due toantigen and antibody levels that are below the limit ofdetection of this assay.The [employer] HIV Ag/Ab Combo assay result andsupplemental assay results should be interpreted inconjunction with the patient's clinical presentation,history and other laboratory results. If the results areinconsistent with clinical evidence, additional testing issuggested to confirm the result. Blood Venous blood specimen / Unknown 07/15/2024 1:41 PM EST 07/15/2024 4:20 PM EST [facility] LAB BLOOD ORDERABLES Katya l Result [facility] [address] [place] [phone] * POCT Urine (07/15/2024 10:24 AM EST) Pathologist [facility] Preg Test, Ur Negative Negative, Indeterminate, None Detected, Invalid, Specimen unsatisfactory for evaluation, Weakly Positive QC Media Lot # [id number] Lot# Expiration Date [id number] Urine 07/15/2024 10:2 4 AM EST [facility] POINT OF CARE TEST ENTER/ EDIT ORDERABLES [...] documented as of this encounter Care Teams Road Consultant Relationship Specialty Start Date End Date Arlet Sawyer CNP [address] [place] [phone] PCP - General Family Medicine 07/15/24 documented as of this encounter
== END 2024-08-03 11:07 | disposition home or self-care (01) ==
LOC: HO.SH 11:06
DX: Z01.118 Encounter for examination of ears and hearing with other abnormal findings (principal); H93.293 Other abnormal auditory perceptions, bilateral
CPT/HCPCS: 92557; 92567

== ENCOUNTER 2024-08-05 13:33 | Outpatient (REF) | payer MEDICAID, SELFPAY ==
--- OUTSIDE RECORDS SUMMARY | 2024-08-05 15:59 | XMS_ITS | Encounter Summary ---
Author Organization [employer] Address 75 [facility] 7t [place] [address] Care Team Providers Care Doorperson Or Luggage Porter Name Role Phone Arlet Sawyer CNP Primary Care Provider [phone] Encounter Details Date Type Department Care Team (Late st Contact Info) Description 07/17/2024 Orders Only [facility] [address] [place] [address] Arlet Sawyer CNP [address] [place] [address] Attention deficit hyperactivity disorder (ADHD), unspecified ADHD [...] Care Team (Late st Contact Info) Description 09/02/2024 11:00 AM EDT Office Visit [facility] [address] [place] [address] Arlet Sawyer, CHIEF LIBRARIAN MUSIC DEPARTMENT [address] [place] [address] documented as of this encounter Procedures Procedure Name Priority Date/Time Associated Diagnosis Comments US PELVIS TRANSVAGINAL Routine 07/30/2024 3:41 PM EST documented in this encounter Results * US Pelvis Transvaginal (07/30/2024 3:41 PM EST) Anatomical Region Laterality Modality Pelvis Ultrasound 07/30/2024 3:41 PM EST Narrative 08/03/2024 7:40 AM EDT ? [facility] ?[address] ?[place] [address] ? Ultrasound Report ? Signed ? Patient: Earl,Amisha ?MR#: [id number] ?? [id number] ? : 1995 ?Acct:[id number] ? Age/Sex: 29 / F ?ADM Date: 03/06/25 ? Loc: HO.US ? Attending Dr: Arlet Sawyer ROLLING MILL OPERATOR ? Ordering Physician: Arlet Sawyer ?? Date of Service: 07/30/24 ?? Procedure(s): US pelvic and transvaginal ?? Accession Number(s): [id number] ? cc: Arlet Sawyer ? EXAMINATION: ??US [...] DD/ 1541 ? TD/TT: 07/30/24 1604 ? Cut Off Worker: ? Procedure Note Donotuseinterpreter, Image - 08/03/2024 [place] [address] Ultrasound Report Signed Patient: Antonia Elliott#: [id number] : 1995Acct:[id number] Age/Sex: Date: 07/30/24 Loc: HO.US Attending Dr: Arlet Sawyer ROLLING MILL OPERATOR Ordering Physician: Arlet Sawyer Date of Service: 07/30/24 Procedure(s): US pelvic and transvaginal Accession Number(s): [id number] cc: Arlet Sawyer EXAMINATION: US PELVIS TRANSABDOMINAL [...] 08/03/24 0738 DD/ 1541 TD/TT: 07/30/24 1604 Cut Off Worker: us Arlet Sawyer CNP IMG US PROCEDURES Edited Result - Final documented in this encounter Visit Diagnoses Diagnosis Attention deficit hyperactivity disorder (ADHD), unspecified ADHD type- Primary documented in this encounter Additional Health Concerns Assessment Noted Time PHQ-9 Depression Total Score: 21 025 10:22 AM EST documented as of this encounter Care Teams Doorperson Or Luggage Porter Relationship Specialty Start Date End Date Arlet Sawyer CNP [address] [place] [phone] PCP - General Family Medicine 07/15/24 documented as of this encounter
--- OUTSIDE RECORDS SUMMARY | 2024-08-05 15:59 | XMS_ITS | Encounter Summary ---
Author Organization [facility] Address [address] [facility] [address] [place] [address] Care Team Providers Care Job Placement Officer Name Role Phone Arlet Sawyer CNP Primary Care Provider [phone] [phone] Reason for Referral * Imaging (Urgent) - Authorized Specialty Diagnoses / Procedures Referred By Jennifer mcguire Referred To Contact Radiology Diagnoses Abnormal radiologic findings on diagnostic imaging of renal pelvis, ureter, or bladder Procedures US Pelvis Transvaginal Arlet Sawyer CNP [address] [place] [address] Phone: tel: fax: Referral ID Status Reason Start Date Expiration Date V isits Requested Visits Authorized [id number] Authorized 08/05/2024 08/05/2025 1 1 * Consultation (Routine) - Pending Review Specialty Diagnoses / Procedures Referred By Jennifer mcguire Referred To Contact Otolaryngology Diagnoses Hearing loss of right ear, unspecified hearing loss type Arlet Sawyer CNP [address] [place] [address] Phone: tel: fax: Referral ID Status Reason Start Date Expiration Date Visits Requested Visits Authorized [id number] Pending Review Specialty Services Required 08/05/2024 08/05/2025 1 1 Reason for Visit * Reason Comments Gynecologic Exam Encounter Details Date Type Department Care Team (Latest Contact Info) Description 08/05/2024 10:00 AM EDT Procedure Visit [facility] MED[facility] [address] [place], [place] [id number] Arlet Sawyer, HOTEL VALET ATTENDANT [address] [place] [address] Encounter for Papanicolaou smear for cervical cancer screening (Primary Dx); Encounter for screening examination for sexually transmitted infection; Hearing loss of right ear, unspecified hearing loss type; Abnormal radiologic findings on diagnostic imaging of renal pelvis, ureter, or bladder; Encounter for gynecological examination without abnormal finding; Symptoms of urinary tract infection; Irregular periods Social History Tobacco Use Types [...] t he electric, gas, oil or water [employer] threatened to shut off services in your [...] Sign Reading Time Taken Comments Blood Pressure 119/75 08/05/2024 10:07 AM EDT Pulse 58 08/05/2024 10:07 AM EDT Temperature 36.8 ??C (98.2 ??F) 08/05/2024 10:07 AM E DT Respiratory Rate 16 08/05/2024 10:07 AM EDT Oxygen Saturation 98% 08/05/2024 10:07 AM EDT Inhaled Oxygen Concentration - - Weight 54.6 kg (120 lb 6.4 oz) 08/05/2024 10:07 AM EDT Height - - Body Mass Index - - documented in this encounter Progress Notes * Arlet Sawyer CNP - 08/05/2024 10:00 AM EDT Subjective Patient ID: Amisha Elliott is a 29 y.o. female who presents for pap smear. Interim Hx LMP: 07/31/24. Pt reports that she still is having irregular periods since starting her OCPs. She said she has been taking it everyday and is on her 3rd week of her pack. She reports that she is still bleeding but it has improved. She denies dizziness, CP, SOB. She is also reporting incomplete emptying of her bladder today. She denies frequency, burning with urination, flank pain, fever chills. Declines UPI since last visit Would like STI testing today Pt did call into office on 08/03/24 for the following: Reports having a pelvic US on 07/30/24. Pt had some blood tinged discharge. Per pt having vaginal bleeding x 3 days. Pt does endorse having heavy bleeding that is overflowing to underwear. Per pt this heavy bleeding x 3 days. Pt having pelvic pain yesterday. First day of LMP was on 06/29/24 and that was normal. Pt has never had this heavy of bleeding. Pt advised of disposition, agrees to seek ER carefor exam . Will be going to [facility]. -update: pt said she left ER d/t 4 hour wait. GUILHERME 07/15/24 At this visit we addressed irregular periods. Pt reported First menses age 14, at age 17 period wascoming twice a month, at age 29 period has been coming 3x a month starting this may, LMP: 2/2-2/6, heavy period, no cramps, no bloating, uses panty liners. Has had to use tampons when periods were heavier. We started pt on OCPs and pt was advised to start taking within 4 days of period usually starting on Saturday after last menses. We also addressed her anxiety concerns, she was referred to . Consultation on 08/10 for . We also restarted concerta for ADHD. We referred her to audiology for hearing evaluation. Update: she said she had evaluation and she ishaving hearing loss in right ear. Per pt specialists said that her hearing loss is mild and they recommended an over the counter amplification device and further evaluation by ENT. Imaging Pelvic U/S 07/30/24 US/US pelvic and transvaginal IMPRESSION: 1. 1.2 x 1.1 x 1.2 cm right sided uterine fibroid. 2. Echogenic structure adjacent to the right ovary which may represent a loop with bowel or fallopian tube filled with debris. 3. 1.9 x 2.2 x 1.6 cm left paraovarian cyst. Review of Systems Constitutional: Negative for chills, fatigue and fever. Respiratory: Negative for shortness of breath. Cardiovascular: Negative for chest pain and palpitations. Gastrointestinal: Negative for abdominal pain, blood in stool, constipation, diarrhea, nausea and vomiting. Genitourinary: Positive for menstrual problem, urgency and vaginal bleeding. Negative for decreasedurine volume, difficulty urinating, dyspareunia, dysuria, flank pain, hematuria, vaginal discharge and vaginal pain. Neurological: Negative for dizziness, weakness, light-headedness and headaches. Objective Vitals: 08/05/24 1007 BP: 119/75 Pulse: 58 Resp: 16 Temp: 98.2 ??F (36.8 ??C) SpO2: 98% Physical Exam Constitutional: Appearance: Normal appearance. She is normal weight. Cardiovascular: Rate and Rhythm: Normal rate and regular rhythm. Pulses: Normal pulses. Heart sounds: Normal heart sounds. No murmur heard. No friction rub. No gallop. Pulmonary: Effort: Pulmonary effort is normal. No respiratory distress. Breath sounds: Normal breath sounds. No wheezing or rales. Genitourinary: General: Normal vulva. Exam position: Lithotomy position. Pubic Area: No rash or pubic lice. Vagina: No signs of injury and foreign body. Bleeding present. No vaginal discharge, erythema, tenderness or lesions. Cervix: Normal. No cervical motion tenderness, discharge, friability, lesion, erythema, cervical bleeding or eversion. Uterus: Normal. Not enlarged, not fixed, not tender and no uterine prolapse. Adnexa: Right: Tenderness present. Left: Tenderness present. Comments: +minor bleeding from vaginal canal +tenderness with palpation in right adnexal and left adnexal areas. Neurological: General: No focal deficit present. Mental Status: She is alert and oriented to person, place, and time. Psychiatric: Mood and Affect: Mood normal. Behavior: Behavior normal. Thought Content: Thought content normal. Judgment: Judgment normal. Assessment/Plan Problem List Items Addressed This Visit Hearing loss of right ear Referral placed to ENT for further evaluation of right sided hearing loss Relevant Orders Referral to ENT Irregular periods Education provided regarding findings on pelvic u/s and how they may be related to irregular bleeding pt is experiencing. Plan to repeat pelvic U/S Education provided around starting OCPs and how periods may be irregular for 2-3 months within starting this method. Pt would like to continue with method at this time. Advised pt that if she is still having bleeding that fills up a pad from front to back every hour, I strongly advise her to go to ED. Pt agreeable to plan and we will f/u on this issue in 1 month or sooner if needed. Encounter for Papanicolaou smear for cervical cancer screening - Primary Physical exam was normal today With f/u with results If normal, next pap due in 2029 w/ cotest Relevant Orders STI testing add on (NG, CT, Trich) POCT Urinalysis (Completed) POCT Urine (Completed) Pap Smear Symptoms of urinary tract infection U/a positive for blood and leuks Will send for culture Relevant Orders Culture, Urine, Routine Encounter for screening examination for sexually transmitted infection No vaginal sx today Will add on STI testing to pap today Relevant Orders STI testing add on (NG, CT, Trich) Abnormal radiologic findings on diagnostic imaging of renal pelvis, ureter, or bladder Previous pelvic U/S showed paraovarian cyst (left) and fibroid (right)as well as an echogenic structure adjacent to right ovary. HCG completed today-neg Will repeat pelvvic u/s and consider COLD PRESS OPERATOR consult for surgical intervention at future date. Relevant Orders US Pelvis Transvaginal Encounter for gynecological examination without abnormal finding documented in this encounter Miscellaneous Notes * Assessment & Plan Note - Arlet Sawyer CNP - 08/05/2024 1:31 PM EDT Associated Problem(s): Irregular periods Education provided regarding findings on pelvic u/s and how they may be related to irregular bleeding pt is experiencing. Plan to repeat pelvic U/S Education provided around starting OCPs and how periods may be irregular for 2-3 months within starting this method. Pt would like to continue with method at this time. Advised pt that if she is still having bleeding that fills up a pad from front to back every hour, I strongly advise her to go to ED. Pt agreeable to plan and we will f/u on this issue in 1 month or sooner if needed. * Assessment & Plan Note - Arlet Sawyer CNP - 08/05/2024 1:25 PM EDT Associated Problem(s): Abnormal radiologic findings on diagnostic imaging of renal pelvis, ureter, or bladder Previous pelvic U/S showed paraovarian cyst (left) and fibroid (right)as well as an echogenic structure adjacent to right ovary. HCG completed today-neg Will repeat pelvvic u/s and consider COLD PRESS OPERATOR consult for surgical intervention at future date. * Assessment & Plan Note - Arlet Sawyer CNP - 08/05/2024 1:24 PM EDT Associated Problem(s): Encounter for screening examination for sexually transmitted infection No vaginal sx today Will add on STI testing to pap today * Assessment & Plan Note - Arlet Sawyer CNP - 08/05/2024 1:23 PM EDT Associated Problem(s): Symptoms of urinary tract infection U/a positive for blood and leuks Will send for culture * Assessment & Plan Note - Arlet Sawyer CNP - 08/05/2024 1:23 PM EDT Associated Problem(s): Encounter for Papanicolaou smear for cervical cancer screening Physical exam was normal today With f/u with results If normal, next pap due in 2029 w/ cotest * Assessment & Plan Note - Arlet Sawyer CNP - 08/05/2024 1:22 PM EDT Associated Problem(s): Hearing loss of right ear Referral placed to ENT for further evaluation of right sided hearing loss documented in this encounter Plan of Treatment Upcoming Encounters Date Type Department Care Team (Late st Contact Info) Description 09/02/2024 11:00 AM EDT Office Visit [facility] MEDICINE [address] [place] [id number] Arlet Sawyer CNP [address] [place] [address] Scheduled Orders Name Type Priority Associated Diagnoses Orde r Schedule STI testing add on (NG, CT, Trich) Pathology and Cytology Routine Encounter for Papanicolaou smear for cervical cancer screening Encounter for screening examination for sexually transmitted infection Ordered: 08/05/2024 US Pelvis Transvaginal Imaging Urgent Abnormal radiologic findings on diagnostic imaging of renal pelvis, ureter, or bladder Expected: 08/05/2024, Expires: 08/05/2025 Pap Smear Pathology and Cytology Routine Encounter for Papanicolaou smear for cervical cancer screening Ordered: 08/05/2024 Culture, Urine, Routine Microbiology Routine Symptoms of urinary tract infection Expected: 08/05/2024 (Approximate), Expires: 08/05/2025 Scheduled Referrals Name Type Priority Associated Diagnoses Orde r Schedule Referral to ENT Outpatient Referral Routine Hearing loss of right ear, unspecified hearing loss type Expected: 08/05/2024 (Approximate), Expires: 08/05/2025 documented as of this encounter Procedures Procedure Name Priority Date/Time Associated Diagnosis Comments POCT , URINE Routine 08/05/2024 10:35 AM EDT Encounter for Papanicolaou smear for cervical cancer screening POCT URINALYSIS DIPSTICK Routine 08/05/2024 10:31 AM EDT Encounter for Papanicolaou smear for cervical cancer screening documented in this encounter Results * POCT Urine (08/05/2024 10:35 AM EDT) Preg Test, Ur Negative Negative, Indeterminate, None Detected, Invalid, Specimen unsatisfactory for evaluation, Weakly Positive QC Media Lot # [id number] Lot# Expiration Date ,312,[id number] Urine 08/05/2024 10:3 5 AM EDT [facility] POINT OF CARE TEST ENTER/ EDIT ORDERABLES Final Result * (ABNORMAL) POCT Urinalysis (08/05/2024 10:31 AM EDT) Color, UA Yellow Clarity, UA Clear Glucose, UA Negative Bilirubin, UA Negative Ketones, UA Negative Spec Grav, UA 1.025 Blood, UA Positive(A) Negative, None Detected pH, UA 5.5 Protein, UA Moderate Comment:30mg/dl Urobilinogen, UA 0.2 Leukocytes, UA Few 15(A) Negative, Rare, Trace Comment:Small Nitrite, UA Negative Negative, None Detected Appearance, UA Yellow QC Media Lot # [id number] Lot# Expiration Date [id number] Urine 08/05/2024 10:3 1 AM EDT Result [facility] POINT OF CARE TEST ENTER/ EDIT ORDERABLES Final Result documented in this encounter Visit Diagnoses Diagnosis Encounter for Papanicolaou smear for cervical cancer screening- Primary Encounter for screening examination for sexually transmitted infection Hearing loss of right ear, unspecified hearing loss type Abnormal radiologic findings on diagnostic imaging of renal pelvis, ureter, or bladder Encounter for gynecological examination without abnormal finding Symptoms of urinary tract infection Irregular periods documented in this encounter Additional Health Concerns Assessment Noted Time PHQ-9 Depression Total Score: 21 025 10:22 AM EST documented as of this encounter Care Teams Job Placement Officer Relationship Specialty Start Date End Date Arlet Sawyer CNP [address] [place] [id number] PCP - General Family Medicine 07/15/24 documented as of this encounter
--- OUTSIDE RECORDS SUMMARY | 2024-08-05 15:59 | XMS_ITS | Encounter Summary ---
Author Organization [employer] Address [address] [facility] 7 [place] [address] Care Team Providers Care Dietitian Name Role Phone Unavailable Primary Care Provider Unavailabl e Reason for Visit * Reason Onset Date Comments Chart prep 07/14/2024 Encounter Details Date Type Department Care Team ([facility] st Contact Info) Description 07/14/2024 Telephone [facility] MEDICINE [address] [place] [address] Arlet Sawyer CNP [address] [place] [address] Chart prep Social History Tobacco Use Types [...] Description 09/02/2024 11:00 AM EDT Office Visit [facility] MEDICINE [address] [place] [address] Arlet Sawyer CNP [address] [place] [address] documented as of this encounter Visit Diagnoses Not on filedocumented in this encounter
--- OUTSIDE RECORDS SUMMARY | 2024-08-05 15:59 | XMS_ITS | Encounter Summary ---
Author Organization [employer] [facility] Address [address] [place] [address] [place] [address] Care Team Providers Care Printer Slotter Feeder Name Role Phone Arlet Sawyer CNP Primary Care Provider [phone] [phone] Encounter Details Date Type Department Care Team (Late st Contact Info) Description 10/09/2022 Abstract [facility] [address] [place] [address] Сергей Kunz DMD [address] [place] [address] Social History Tobacco Use Types Packs/Day Years [...] Description 09/02/2024 11:00 AM EDT Office Visit [facility] MEDICINE [address] [place] [address] Arlet Sawyer CNP [address] [place] [address] documented as of this encounter Visit Diagnoses Not on filedocumented in this encounter Care Teams Printer Slotter Feeder Relationship Specialty Start Date End Date Arlet Sawyer CNP [address] [place] [address] PCP - General Family Medicine 07/15/24 documented as of this encounter
--- OUTSIDE RECORDS SUMMARY | 2024-08-05 15:59 | XMS_ITS | Encounter Summary ---
Author Organization [employer] Address [address] [facility] 7 [place] [address] Care Team Providers Care Ferry Captain Name Role Phone Arlet Sawyer CNP Primary Care Provider [phone] [phone] Reason for Visit * Reason Onset Date Comments Chart Prep 07/16/2024 Encounter Details Date Type Department Care Team ([facility] st Contact Info) Description 07/16/2024 Telephone [facility] MEDICINE [address] [place] [address] Arlet Swayer CNP [address] [place] [address] Chart Prep Social History Tobacco Use Types [...] Description 09/02/2024 11:00 AM EDT Office Visit [facility] MED[facility]INE [address] [place] [address] Arlet Sawyer CNP [address] [place] [address] documented as of this encounter Visit Diagnoses Not on filedocumented in this encounter Additional Health Concerns Assessment Noted Time PHQ-9 Depression Total Score: 21 025 10:22 AM EST documented as of this encounter Care Teams Ferry Captain Relationship Specialty Start Date End Date Arlet Sawyer CNP [address] [place] [address] PCP - General Family Medicine 07/15/24 documented as of this encounter
--- OUTSIDE RECORDS SUMMARY | 2024-08-05 15:59 | XMS_ITS | Encounter Summary ---
Author Organization [employer] Address [address] [facility] [address] [place] [address] Care Team Providers Care Hide Inspector And Sorter Name Role Phone Arlet Sawyer MIN Primary Care Provider [phone] [phone] Encounter Details Date Type Department Care Team [...] Description 09/02/2024 11:00 AM EDT Office Visit [facility] MEDICINE [address] [place] [address] Arlet Sawyer CNP [address] [place] [address] documented as of this encounter Visit Diagnoses Not on filedocumented in this encounter Additional Health Concerns Assessment Noted Time PHQ-9 Depression Total Score: 21 025 10:22 AM EST documented as of this encounter Care Teams Hide Inspector And Sorter Relationship Specialty Start Date End Date Arlet Sawyer CNP [address] [place] [address] PCP - General Family Medicine 07/15/24 documented as of this encounter
--- OUTSIDE RECORDS SUMMARY | 2024-08-05 15:59 | XMS_ITS | Encounter Summary ---
Author Organization [employer] Address [address] [facility] 7 [place] [address] Care Team Providers Care Pelletizer Name Role Phone Arlet Sawyer CNP Primary Care Provider [phone] [phone] Reason for Visit * Reason Onset Date Comments Med Refill 07/16/2024 Encounter Details Date Type Department Care Team ([facility] st Contact Info) Description 07/16/2024 Refill [facility] MEDICINE [address] [place] [address] Arlet Sawyer CNP [address] [place] [address] Attention deficit hyperactivity disorder (ADHD), unspecified ADHD [...] 11:00 AM EDT Office Visit [facility] MEDICINE [address] [place] [address] Arlet Sawyer CNP [address] [place] [address] documented as of this encounter Visit Diagnoses Diagnosis Attention deficit hyperactivity disorder (ADHD), unspecified ADHD type documented in this encounter Additional Health Concerns Assessment Noted Time PHQ-9 Depression Total Score: 21 025 10:22 AM EST documented as of this encounter Care Teams Pelletizer Relationship Specialty Start Date End Date Arlet Sawyer CNP [address] [place] [address] PCP - General Family Medicine 07/15/24 documented as of this encounter
--- OUTSIDE RECORDS SUMMARY | 2024-08-05 15:59 | XMS_ITS | Encounter Summary ---
Author Organization [employer] Address [address] [place] [address] 7 [place] [address] Care Team Providers Care Hooker Up Name Role Phone Arlet Sawyer CNP Primary Care Provider [phone] [phone] Reason for Referral * Imaging (Routine) - Authorized Specialty Diagnoses / Procedures Referred By Jennifer mcguire Referred To Contact Radiology Diagnoses Irregular periods Procedures US PELVIC AND TRANSVAGINAL Arlet Sawyer CNP [address] [place] [address] Phone: tel: fax: [address] Phone: tel: fax: Referral ID Status Reason Start Date Expiration Date V isits Requested Visits Authorized [id number] Authorized 07/15/2024 07/15/2025 1 1 * Consultation (Routine) - Authorized Specialty Diagnoses / Procedures Referred By Jennifer mcguire Referred To Contact Optometry Diagnoses Healthcare maintenance Arlet Sawyer CNP [address] [place] [address] Phone: tel: fax: [facility] [address] [place] [phone] Phone: tel: fax: Referral ID Status Reason Start Date Expiration Date Visits Requested Visits Authorized [id number] Authorized Consult and Treat 07/15/2024 07/15/2025 1 1 * Consultation (Routine) - Authorized Specialty Diagnoses / Procedures Referred By Jennifer mcguire Referred To Contact Allergy Diagnoses Allergy, initial encounter Arlet Sawyer CNP [address] [place] [address] Phone: tel: fax: Josue Kunz MD [address] [place] [address] Phone: tel: fax: Referral ID Status Reason Start Date Expiration Date Visits Requested Visits Authorized [id number] Authorized Specialty Services Required 07/15/2024 07/15/2025 12 12 * Consultation (Routine) - Closed Specialty Diagnoses / Procedures Referred By Jennifer mcguire Referred To Contact Genetics Diagnoses Family history of sickle cell anemia Arlet Sawyer CNP [address] [place] [address] Phone: tel: fax: [facility] [address] [place], [place] Phone: tel: fax: Referral ID Status Reason Start Date Expiration Date V isits Requested Visits Authorized [id number] Closed Specialty Services Required 07/15/2024 07/15/2025 1 1 * Consultation (Routine) - Authorized Specialty Diagnoses / Procedures Referred By Jennifer mcguire Referred To Contact Audiology Diagnoses Hearing loss of right ear, unspecified hearing loss type Arlet Sawyer CNP [address] [place] [address] Phone: tel: fax: [facility] Audiology [address] 1[address] Floor [place], [place] Phone: tel: fax: Referral ID Status Reason Start Date Expiration Date Visits Requested Visits Authorized [id number] Authorized Specialty Services Required 07/15/2024 07/15/2025 6 6 * Consultation (Routine) - Closed Specialty Diagnoses / Procedures Referred By Jennifer mcguire Referred To Contact Behavioral Health Diagnoses Anxiety Arlet Sawyer CNP [address] [place] [address] Phone: tel: fax: Referral ID Status Reason Start Date Expiration Date V isits Requested Visits Authorized [id number] Closed Specialty Services Required 07/15/2024 07/15/2025 1 1 Reason for Visit * Reason Comments New Pt Encounter Details Date Type Department Care Team (Latest Contact Info) Description 07/15/2024 10:00 AM EST Office Visit [facility] [address] [place] [phone] Arlet Sawyer CNP [address] [place] [address] Encounter for screening examination for sexually transmitted [...] 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 Resident Attestation: Patient was seen and evaluated [...] lately Per pt would like referral to crisis intervention specialist for allergy testing, referral placed * Assessment [...] Description 09/02/2024 11:00 AM EDT Office Visit [facility] [address] [place] [address] Arlet Sawyer CNP [address] [place] [address] Scheduled Orders Name Type Priority [...] Expected: 07/15/2024 (Approximate), Expires: 07/15/2025 Referral to [facility] Outpatient Referral Routine Healthcare maintenance Expected: 07/15/2024 (Approximate), Expires: 07/15/2025 documented as of this encounter Procedures Procedure Name Priority Date/Time Associated Diagnosis Comments AMB REFERRAL TO AUDIOLOGY Routine 08/03/2024 Hearing loss of right ear, unspecified hearing loss type TSH W/REFLEX TO FT4 Routine 07/15/2024 1 [...] disease documented in this encounter Results * Referral to Audiology (08/03/2024) [facility] OUTPATIENT REFERRAL ORDER SHELBY Final Result * TSH W/Reflex to FT4 (07/15/2024 1:41 PM EST) TSH reflex Free T4 1.09 0.32 - 4.0 uIU/mL [facility] Blood Venous blood specimen / Unknown 07/15/2024 1:41 PM EST 07/15/2024 4:20 PM EST [facility] LAB BLOOD ORDERABLES Katya l Result [facility] [address] [place] [phone] [phone] * (ABNORMAL) CBC auto differential (07/15/2024 1:41 PM EST) Pathologist [facility] White Blood Count 10.5 4.8 - 10.8 X10*3/uL [facility] Red Blood Count 4.97 4.20 - 5.50 X10*6/uL [facility] Hemoglobin 13.4 12.0 - 16.0 g/dl [facility] Hematocrit 40.6 37.0 - 47.0 % [facility] Mean Corpuscular Volume 81.7 80.0 - 98.0 fL [facility] Mean Corpuscular Hemoglobin 27.0 27.0 - 33.0 pg [facility] Mean Corpuscular HGB Conc 33.0 31.0 - 35.0 g/dl [facility] Red Cell Distribution Width 13.9 11.0 - 16.0 % [facility] Platelet Count 282 160 - 400 X10*3/uL [facility] Mean Platelet Volume 9.0(L) 9.4 - 12.3 fL [facility] Neutrophils Percent Auto 65.3 45 - 73 % [facility] Imm Gran Pct Auto 0.4 0.0 - 0.4 % [facility] Lymphocytes Percent Auto 27.8 20 - 40 % [facility] Monocytes Percent Auto 5.6 2 - 11 % [facility] Eosinophils Percent Auto 0.6 0 - 4 % [facility] Basophils Percent Auto 0.3 0 - 2 % [facility] NRBC Pct Auto 0.0 0.0 - 0.2 /100WBC [facility] Neutrophils Absolute Auto 6.9 2.0 - 8.3 x10*3/uL [facility] Imm Gran Abs Auto 0.04(H) 0.00 - 0.03 X10*3/uL [facility] Lymphocytes Absolute Auto 2.9 1.2 - 4.9 X10*3/uL [facility] Monocytes Absolute Auto 0.6 0.1 - 1.2 X10*3/uL [facility] Eosinophils Absolute Auto 0.1 0.0 - 0.4 X10*3/uL [facility] Basophils Absolute Auto 0.0 0.0 - 0.2 X10*3/uL [facility] NRBC Abs Auto 0.000 0.0 - 0.012 X10*3/uL [facility] Blood Venous blood specimen / Unknown 07/15/2024 1:41 PM EST 07/15/2024 4:20 PM EST [facility] LAB BLOOD ORDERABLES Katya l Result Performing Organization Address City/[facility]/ZIP Co de Phone Number [facility] [address] [place] [phone] * Hepatitis C Antibody with Reflex to HCV, RNA, Quantitative, Real-Time PCR (07/15/2024 1:41 PM EST) Hepatitis C Antibody Nonreactive Nonreactive [facility] Comment:Antibodies to HCV no t detected; does not exclude early acuteHCV infection. Blood Venous blood specimen / Unknown 07/15/2024 1:41 PM EST 07/15/2024 4:20 PM EST [facility] LAB BLOOD ORDERABLES Katya l Result Performing Organization Address City/[facility]/ZIP Co de Phone Number [facility] [address] [place] [phone] * HIV-1/2 Antigen and Antibodies, Fourth Generation, with Reflexes (07/15/2024 1:41 PM EST) HIV AB/AG Nonreactive Nonreactive [facility] Comment:HIV-1 p24 Ag and/or HIV-1/HIV-2 Ab not detected.A test result that is nonreactive does not exclude thepossibility of exposure to or infection with HIV-1 and/orHIV-2. Nonreactive results in this assay for individualswith prior exposure to HIV-1 and/or HIV-2 may be due toantigen and antibody levels that are below the limit ofdetection of this assay.[employer] HIV Ag/Ab Combo assay result andsupplemental assay results should be interpreted inconjunction with the patient's clinical presentation,history and other laboratory results. If the results areinconsistent with clinical evidence, additional testing issuggested to confirm the result. Blood Venous blood specimen / Unknown 07/15/2024 1:41 PM EST 07/15/2024 4:20 PM EST [facility] LAB BLOOD ORDERABLES Katya l Result [facility] [address] [place] [address] [phone] * POCT Urine (07/15/2024 10:24 AM EST) Pathologist [facility] Preg Test, Ur Negative Negative, Indeterminate, None Detected, Invalid, Specimen unsatisfactory for evaluation, Weakly Positive QC Media Lot # [id number] Lot# Expiration Date [id number] Urine 07/15/2024 10:2 4 AM EST [facility] [...] documented as of this encounter Care Teams Hooker Up Relationship Specialty Start Date End Date Arlet Sawyer CNP [address] [place] [phone] PCP - General Family Medicine 07/15/24 documented as of this encounter
--- OUTSIDE RECORDS SUMMARY | 2024-08-05 15:59 | XMS_ITS | Encounter Summary ---
Author Organization [employer] Address [address] [facility] 7 [place] [address] Care Team Providers Care Receivable Manager Name Role Phone Arlet Sawyer CNP Primary Care Provider [phone] Reason for Visit * Reason Onset Date Comments Nurse Triage 08/03/2024 Encounter Details Date Type Department Care Team ([facility] st Contact Info) Description 08/03/2024 Telephone [facility] [address] [place] [address] Arlet Sawyer CNP [address] [place] [address] Nurse Triage Social History Tobacco Use Types Packs/Day Years [...] encounter Miscellaneous Notes * Telephone Encounter - Tracey Wick RN - 08/05/2024 12:23 PM EDT Pt seen by PCP today 08/05/2024. * Telephone Encounter - Margarita Vargas RN - 08/03/2024 2:19 PM EDT Images from the original note were not included. Call returned to Amisha Elliott to triage below. Reports having a pelvic US on 07/30/24. Pt had some blood tinged discharge. Per pt having vaginal bleeding x 3 days. Pt does endorse having heavy bleeding that is overflowing to underwear. Per pt this heavy bleeding x 3 days. Pt having pelvic painyesterday. First day of LMP was on 06/29/24 and that was normal. Pt has never had this heavy of bleedi ng. Pt advised of disposition, agrees to seek ER care for exam . Will be going to [facility]. Pt advised to keep appt as scheduled with provider, to call tomorrow with any further recommendations regarding follow up from ER. Will send to PCP as FYI and to further advise Blue team nurses PRN. Sent to team for [facility] ER status check PRN. Protocol Used: Vaginal Bleeding - Abnormal (Adult) Protocol-Based Disposition: Go to Office or Video Visit Now Positive Triage Question: * Moderate vaginal bleeding (i.e., soaking pad or tampon per hour and present > 6 hours; 1 menstrual cup every 6 hours) * All higher-acuity triage questions were negative Care Advice Discussed: * Reasons To Call Back - Bleeding becomes worse - You become worse FW: control Received: Today Margarita Vargas RN P [place] Triage Nurse Previous Messages control (Newest Message First) View All Conversations on this Encounter You routed conversation to [place] Triage Nurse4 hours ago (9:42 AM) Amisha Ordonez [place] [facility] Clinical Support (supporting Arlet Sawyer CNP)Yesterday (1:40 PM) Hey just a question is me having my period normal when I???m taking the pill ? documented in this encounter Plan of Treatment Upcoming Encounters Date Type Department Care Team (Late st Contact Info) Description 09/02/2024 11:00 AM EDT Office Visit [facility] [address] [place] [address] Arlet Sawyer CNP [address] [place] [address] documented as of this encounter Visit Diagnoses Not on filedocumented in this encounter Additional Health Concerns Assessment Noted Time PHQ-9 Depression Total Score: 21 025 10:22 AM EST documented as of this encounter Care Teams Receivable Manager Relationship Specialty Start Date End Date Arlet Sawyer CNP [address] [place] [address] PCP - General Family Medicine 07/15/24 documented as of this encounter
--- OUTSIDE RECORDS SUMMARY | 2024-08-05 15:59 | XMS_ITS | Encounter Summary ---
Author Organization [employer] [facility] Address [address] [place] [address] [place] [address] Care Team Providers Care Plan Consultant Name Role Phone Arlte Sawyer CNP Primary Care Provider [phone] [phone] Encounter Details Date Type Department Care Team (Latest Contact Info) Description 08/05/2020 Abstract [facility] Dental, Provider, DDS Social History Tobacco [...] Description 09/02/2024 11:00 AM EDT Office Visit [facility] [address] [place] [address] Arlet Sawyer CNP [address] [place] [address] documented as of this encounter Visit Diagnoses Not on filedocumented in this encounter Care Teams Plan Consultant Relationship Specialty Start Date End Date Arlet Sawyer CNP [address] [place] [address] PCP - General Family Medicine 07/15/24 documented as of this encounter
--- OUTSIDE RECORDS SUMMARY | 2024-08-05 15:59 | XMS_ITS | Encounter Summary ---
Author Organization [employer] Address [address] [facility] 7t [place] [address] Care Team Providers Care Disaster Recovery Specialist Name Role Phone Arlet Sawyer CNP Primary Care Provider [phone] Encounter Details Date Type Department Care Team (Late st Contact Info) Description 07/15/2024 Telephone [facility] [address] [place] [address] Arlet Sawyer CNP [address] [place] [address] Social History Tobacco Use Types Packs/Day Years [...] 11:00 AM EDT Office Visit [facility] [address] [place] [address] Arlet Sawyer CNP [address] [place] [address] documented as of this encounter Visit Diagnoses Not on filedocumented in this encounter Additional Health Concerns Assessment Noted Time PHQ-9 Depression Total Score: 21 025 10:22 AM EST documented as of this encounter Care Teams Disaster Recovery Specialist Relationship Specialty Start Date End Date Arlet Sawyer CNP [address] [place] [address] PCP - General Family Medicine 07/15/24 documented as of this encounter
--- OUTSIDE RECORDS SUMMARY | 2024-08-05 15:59 | XMS_ITS | Encounter Summary ---
Author Organization [employer] Address [address] [facility] [address] [place] [address] Care Team Providers Care Tool Planer Set Up Operator Name Role Phone Unavailable Primary Care Provider Unavailabl e Reason for Visit * Reason Onset Date Comments Chart Prep 07/07/2024 Encounter Details Date Type Department Care Team ([facility] Contact Info) Description 07/07/2024 Telephone [facility] [address] [place] [phone] Arlet Sawyer CNP [address] [place] [address] Chart Prep Social History Tobacco Use Types [...] Description 09/02/2024 11:00 AM EDT Office Visit [facility] [address] [place] [address] Arlet Sawyer CNP [address] [place] [address] documented as of this encounter Visit Diagnoses Not on filedocumented in this encounter
--- OUTSIDE RECORDS SUMMARY | 2024-08-05 15:59 | XMS_ITS | Encounter Summary ---
Author Organization [employer] Address [address] [facility] 7 [place] [address] Care Team Providers Care Fabric Finisher Name Role Phone Unavailable Primary Care Provider Unavailabl e Reason for Visit * Reason Comments Pre-visit Planning SDOH unable to reach LVM Encounter Details Date Type Department Care Team ([facility] Contact Info) Description 07/07/2024 Patient Outreach [facility] [address] [place] [address] Arlet Sawyer, [facility] [address] [place] [address] Pre-visit Planning (SDOH unable to reach LVM) [...] Upcoming Encounters Date Type Department Care Team ([facility] Contact Info) Description 09/02/2024 11:00 AM EDT Office Visit [facility] [address] [place], [place] [phone] Arlet Sawyer CNP [address] [place] [address] documented as of this encounter Visit Diagnoses Not on filedocumented in this encounter
--- OUTSIDE RECORDS SUMMARY | 2024-08-05 15:59 | XMS_ITS | Encounter Summary ---
Author Organization [employer] Address [address] [facility] 7t [place] [address] Care Team Providers Care Chief Program Officer Name Role Phone Arlet Sawyer MIN Primary Care Provider [phone] Encounter Details Date Type Department Care Team (Latest Contact Info) Description 08/05/2024 Travel Social History Tobacco Use Types Packs/Day [...] Description 09/02/2024 11:00 AM EDT Office Visit [facility] [address] [place] [address] Arlet Sawyer CNP [address] [place] [address] documented as of this encounter Visit Diagnoses Not on filedocumented in this encounter Additional Health Concerns Assessment Noted Time PHQ-9 Depression Total Score: 21 025 10:22 AM EST documented as of this encounter Care Teams Chief Program Officer Relationship Specialty Start Date End Date Arlet Sawyer CNP [address] [place] [address] PCP - General Family Medicine 07/15/24 documented as of this encounter
--- OUTSIDE RECORDS SUMMARY | 2024-08-05 15:59 | XMS_ITS | Clinical Summary ---
Author Organization [employer] Address [address] [facility] 7 [place] [address] Care Team Providers Care Strike Out Machine Operator Name Role Phone Arlet Sawyer MIN Primary Care Provider [phone] Allergies No known active allergies Medications * [...] (one) time for 1 dose. 1 tablet 07/15/19 025 Active Problems Problem Noted Date Diagnosed Date Encounter for Papanicolaou s mear for cervical cancer screening 08/05/2024 Assessment & Plan (08/05/2024 1:27 PM EDT): Physical exam was normal today With f/u with results If normal, next pap due in 2029 w/ cotest Symptoms of urinary tract infection 08/05/2024 Assessment & Plan (08/05/2024 1:23 PM EDT): U/a positive for blood and leuks Will send for culture Encounter for screening exam ination for sexually transmitted infection 08/05/2024 Assessment & Plan (08/05/2024 1:24 PM EDT): No vaginal sx today Will add on STI testing to pap today Abnormal radiologic findings on diagnostic imaging of renal pelvis, ureter, or bladder 08/05/2024 Assessment & Plan (08/05/2024 1:25 PM EDT): Previous pelvic U/S showed paraovarian cyst (left) and fibroid (right)as well as an echogenic structure adjacent to right ovary. HCG completed today-neg Will repeat pelvvic u/s and consider STITCHDOWN TOE FORMER consult for surgical intervention at future date. Encounter for gynecological examination without abnormal finding 08/05/2024 Encounter for screening exam ination for sexually [...] of right ear 07/15/2024 Assessment & Plan (08/05/2024 1:22 PM EDT): Referral placed to ENT for further evaluation of right sided hearing loss Assessment & Plan (07/15/2024 2:34 PM EST): [...] lately Per pt would like referral to legal project manager for allergy testing, referral placed Attention deficit [...] month Irregular periods 07/15/2024 Assessment & Plan (08/05/2024 1:31 PM EDT): Education provided regarding findings on pelvic u/s [...] in 1 month or sooner if needed. Assessment & Plan (07/15/2024 2:24 PM EST): [...] organization. Date Type Department Care Team Description 08/05/2024 10:00 AM EDT Procedure Visit [facility] [address] [place], [place] [phone] Arlet Sawyer CNP Encounter for Papanicolaou smear for cervical cancer screening (Primary Dx); Encounter for screening examination for sexually transmitted infection; Hearing loss of right ear, unspecified hearing loss type; Abnormal radiologic findings on diagnostic imaging of renal pelvis, ureter, or bladder; Encounter for gynecological examination without abnormal finding; Symptoms of urinary tract infection; Irregular periods 08/05/2024 Travel 08/03/[address] [facility] [address] [place] [phone] Arlet Sawyer CNP Nurse Triage 07/17/2024 Orders Only [address] [address] Arlet Sawyer CNP Attention deficit hyperactivity disorder (ADHD), unspecified ADHD type (Primary Dx) 07/16/[address] [address] Arlet Sawyer CNP Attention deficit hyperactivity disorder (ADHD), unspecified ADHD type 07/16/[address] [address] Arlet Sawyer CNP Chart Prep 07/15/2024 10:00 AM EST Office Visit [address] [address] Arlet Sawyer CNP Encounter for screening examination for sexually transmitted disease (Primary Dx); Encounter for initial prescription of contraceptive pills; Dermatitis; Encounter for tobacco use cessation counseling; Healthcare maintenance; Anxiety; Hearing loss of right ear, unspecified hearing loss type; Family history of sickle cell anemia; Allergy, initial encounter; Attention deficit hyperactivity disorder (ADHD), unspecified ADHD type; Vaginal burning; Irregular periods 07/15/[address] [address] Arlet Sawyer CNP 07/15/2024 Travel 07/14/[address] [address] Arlet Sawyer CNP Chart prep 07/07/2024 Patient Outreach [facility] [address] [place] [address] Arlet Sawyer CNP Pre-visit Planning (SDOH unable to reach [facility]) 07/07/[address] [facility] [address] [place] [address] Arlet Sawyer CNP Chart Prep 07/03/2024 10:00 AM EST Office Visit [facility] [address] [place] [address] Ortega Castano 07/02/2024 11:00 AM EST Office Visit [facility] [address] [place] [address] OmairaJennyOrtega 06/17/2024 9:30 AM EST Office Visit [facility] [address] [place] [address] Zack Salinas, DMD Severe dental caries (Primary Dx) 06/16/2024 2:00 PM EST Office Visit [facility] [address] [place] [address] Janie Bryant, WALT 05/12/[address] [facility] [address] [place], [place] [phone] Guerline Bolton NP Appointment Request; New Patient appt. 05/11/[address] [facility] [address] [place] [address] Aida Tello MA Chart Prep from Last 3 Months Social History Tobacco [...] 09/02/2024 11:00 AM EDT Office Visit [facility] [address] [place] [phone] Arlet Sawyer, CLAIM PROCESSOR [address] [place] [address] Health Maintenance Due Date Last Done Comments Alcohol/Substance Use Screening 2008 Hepatitis B Vaccines (1 of 3 - [...] X-Ray: Full Mouth 04/04/2027 024, 08/05/2020, 04/02/2018 DTaP/Tdap/Td Vaccines (2 - T d or Tdap) 09/29/2027 09/28/2017 Zoster Vaccines (1 of 2) 01/22/2046 RSV [...] for Papanicolaou smear for cervical cancer screening AMB REFERRAL TO AUDIOLOGY Routine 08/03/2024 Hearing loss of right ear, unspecified hearing loss type US PELVIS TRANSVAGINAL Routine 07/30/2024 3:41 PM EST TSH W/REFLEX TO FT4 [...] Recently Relevant to Health Maintenance Results * POCT Urine (08/05/2024 10:35 AM EDT) Only the most recent of2 resultswithin the time period is included. Preg Test, Ur Negative Negative, Indeterminate, None Detected, Invalid, Specimen unsatisfactory for evaluation, Weakly Positive QC Media Lot # [id number] Lot# Expiration Date [id number] Urine 08/05/2024 10:3 5 AM EDT [facility] POINT OF CARE TEST ENTER/ [...] Media Lot # [id number] Lot# Expiration Date ,[id number] Urine 08/05/2024 10:3 1 AM EDT [facility] POINT OF CARE TEST ENTER/ EDIT ORDERABLES Final Result * Referral to Audiology (08/03/2024) [facility] OUTPATIENT REFERRAL ORDER SHELBY Final Result * US Pelvis Transvaginal (07/30/2024 3:41 PM EST) Anatomical Region Laterality Modality Pelvis Ultrasound 07/30/2024 3:41 PM EST Narrative 08/03/2024 7:40 AM EDT ? [facility] ?[address] ?[place] [address] ? Ultrasound Report ? Signed ? Patient: Earl,Amisha ?MR#: [id number] ?? [id number] ? : 1995 ?Acct:[id number] ? Age/Sex: 29 / F ?ADM Date: 03/06/25 ? Loc: HO.US ? Attending Dr: Arlet Sawyer ABRASIVE WATER JET CUTTER OPERATOR ? Ordering Physician: Arlet Sawyer ?? Date of Service: 07/30/24 ?? Procedure(s): US pelvic and transvaginal ?? Accession Number(s): [id number] ? cc: Arlet Sawyer ? EXAMINATION: ??US [...] signed by Gabriel Dietz MD in OV> ?08/03/[address] ? DD/ 1541 ? TD/TT: 07/30/24 1604 ? Pasteurizer: ? Procedure Note Dondesiraeter, Image - 08/03/2024 [place] [address] Ultrasound Report Signed Patient: Antonia Elliott#: [id number] : 1995Acct:[id number] Age/Sex: Date: 07/30/24 Loc: HO.US Attending Dr: Arlet Sawyer ABRASIVE WATER JET CUTTER OPERATOR Ordering Physician: Arlet Sawyer Date of Service: 07/30/24 Procedure(s): US pelvic and transvaginal Accession Number(s): [id number] cc: Arlet Sawyer EXAMINATION: US PELVIS TRANSABDOMINAL [...] Gabriel Dietz MD 08/03/2024 07:38 AM EDT RP Dictated By: Gabriel Dietz MD Signed By: <Electronically signed by Gabriel Dietz MD in OV> 08/03/24 0738 DD/ 1541 TD/TT: 07/30/24 1604 Pasteurizer: [facility] US PROCEDURES Edited Result - Final * TSH W/Reflex to FT4 (07/15/2024 1:41 PM EST) Pathologist [facility] TSH reflex Free T4 1.09 0.32 - 4.0 uIU/mL [facility] Blood Venous blood specimen / Unknown 07/15/2024 1:41 PM EST 07/15/2024 4:20 PM EST [facility] LAB BLOOD ORDERABLES Katya l Result [facility] [address] [place] [phone] * (ABNORMAL) CBC auto differential (07/15/2024 1:41 PM EST) White Blood Count 10.5 4.8 - 10.8 X10*3/uL [facility] Red Blood Count 4.97 4.20 - 5.50 X10*6/uL [facility] Hemoglobin 13.4 12.0 - 16.0 g/dl [facility] Hematocrit 40.6 37.0 - 47.0 % [facility] Mean Corpuscular Volume 81.7 80.0 - 98.0 fL [facility] Mean Corpuscular Hemoglobin 27.0 27.0 - 33.0 pg [facility] Mean Corpuscular HGB Conc 33.0 31.0 - 35.0 g/dl [facility] Red Cell Distribution Width 13.9 11.0 - 16.0 % [facility] Platelet Count 282 160 - 400 X10*3/uL [facility] Mean Platelet Volume 9.0(L) 9.4 - 12.3 fL [facility] Neutrophils Percent Auto 65.3 45 - 73 % [facility] Imm Gran Pct Auto 0.4 0.0 - 0.4 % [facility] Lymphocytes Percent Auto 27.8 20 - 40 % [facility] Monocytes Percent Auto 5.6 2 - 11 % [facility] Eosinophils Percent Auto 0.6 0 - 4 % [facility] Basophils Percent Auto 0.3 0 - 2 % [facility] NRBC Pct Auto 0.0 0.0 - 0.2 /100WBC [facility] Neutrophils Absolute Auto 6.9 2.0 - 8.3 x10*3/uL [facility] Imm Gran Abs Auto 0.04(H) 0.00 - 0.03 X10*3/uL [facility] Lymphocytes Absolute Auto 2.9 1.2 - 4.9 X10*3/uL [facility] Monocytes Absolute Auto 0.6 0.1 - 1.2 X10*3/uL [facility] Eosinophils Absolute Auto 0.1 0.0 - 0.4 X10*3/uL [facility] Basophils Absolute Auto 0.0 0.0 - 0.2 X10*3/uL [facility] NRBC Abs Auto 0.000 0.0 - 0.012 X10*3/uL [facility] Blood Venous blood specimen / Unknown 07/15/2024 1:41 PM EST 07/15/2024 4:20 PM EST [facility] BLOOD ORDERABLES Katya l Result Performing Organization Address [facility]/ZIP Co de Phone Number [facility] [address] [place] [phone] * Hepatitis C Antibody with Reflex to HCV, RNA, Quantitative, Real-Time PCR (07/15/2024 1:41 PM EST) Hepatitis C Antibody Nonreactive Nonreactive [facility] Comment:Antibodies to HCV no t detected; does not exclude early acuteHCV infection. Blood Venous blood specimen / Unknown 07/15/2024 1:41 PM EST 07/15/2024 4:20 PM EST [facility] BLOOD ORDERABLES Katya l Result Performing Organization Address [facility] Co de Phone Number [facility] [address] [place] [phone] * HIV-1/2 Antigen and Antibodies, Fourth Generation, with Reflexes (07/15/2024 1:41 PM EST) HIV AB/AG Nonreactive Nonreactive [facility] Comment:HIV-1 p24 Ag and/or HIV-1/HIV-2 Ab not detected.A test result that is nonreactive does not exclude thepossibility of exposure to or infection with HIV-1 and/orHIV-2. Nonreactive results in this assay for individualswith prior exposure to HIV-1 and/or HIV-2 may be due toantigen and antibody levels that are below the limit ofdetection of this assay.[facility] HIV Ag/Ab Combo assay result andsupplemental assay results should be interpreted inconjunction with the patient's clinical presentation,history and other laboratory results. If the results areinconsistent with clinical evidence, additional testing issuggested to confirm the result. Blood Venous blood specimen / Unknown 07/15/2024 1:41 PM EST 07/15/2024 4:20 PM EST Arlet Sawyer [facility] BLOOD ORDERABLES Katya l Result [facility] [address] [place] [phone] from Last 3 Months Insurance [facility] C3 DENTAL-[facility] MEDICAID STAND ADULT Care Teams Strike Out Machine Operator Relationship Specialty Start Date End Date Arlet Sawyer CNP [address] [place] [phone] PCP - General Family Medicine 07/15/24
== END 2024-08-05 13:34 | disposition home or self-care (01) ==
LOC: HO.HHCLNP 13:33
DX: Z12.4 Encounter for screening for malignant neoplasm of cervix (principal); Z11.3 Encounter for screening for infections with a predominantly sexual mode of transmission
CPT/HCPCS: 87086; 87088; 87186; 87491; 87591; 87661; 88175

== ENCOUNTER 2024-08-26 14:29 | Outpatient (REF) | payer MEDICAID, SELFPAY ==
--- NOTE | ~2024-08-26 | US_ITS ---
EXAMINATION: US PELVIS CLINICAL INFORMATION: Irregular periods. 29-year-old female. COMPARISON: 07/30/2024. TECHNIQUE: Ultrasound of the pelvis is performed using both transabdominal and transvaginal transducers along with Doppler. Transvaginal imaging is performed due to inadequate visualization transabdominally. FINDINGS: Uterus: The uterus is retroverted, retroflexed, and measures 6.2 x 4.1 x 4.6 cm. Normal-appearing cervix with nabothian cysts. The double wall endometrial thickness is 2 mm. It is uniform without irregularity. The uterus is smooth in contour and has normal myometrial echogenicity. There is a solitary right mid uterine segment intramural fibroid measuring 0.9 x 0.6 x 0.8 cm (previously measuring 1.3 x 1.1 x 1.2 cm). Adnexa: Both ovaries are visualized. There is normal color flow to the adnexa. There is no ovarian torsion. There is small volume anechoic free pelvic fluid, likely physiologic. There is a left paraovarian cyst again noted measuring 2.2 x 1.7 x 1.8 cm (previously 2.2 x 1.9 x 1.6 cm). Right ovary measures 5.6 x 1.4 x 2.0 cm. Volume = 8.4 mL. There is a simple follicular cyst measuring 1.2 x 0.8 x 1.2 cm. Left ovary measures 4.6 x 1.6 x 3.3 cm. Volume = 12.3 mL. Normal sonographic appearance aside from the paraovarian cyst. A small amount of free fluid is seen adjacent to the left ovary. US/US pelvic and transvaginal IMPRESSION: 1. No endometrial thickening or abnormality. Retroverted and retroflexed uterus. 2. Right mid uterine segment intramural fibroid measuring 0.9 x 0.6 x 0.8 cm. 3. Left paraovarian cyst measuring 2.2 x 1.7 x 1.8 cm, essentially stable. 4. Ovaries are otherwise normal. Electronically signed by: Jovani Vallejo MD 08/26/2024 03:18 PM EDT
--- OUTSIDE RECORDS SUMMARY | 2024-08-26 17:14 | XMS_ITS | Encounter Summary ---
Author Organization [email or web address] [facility] Address [address] [place] [address] [place] [address] Care Team Providers Care Bench Hand Machine Name Role Phone Arlet Sawyer CNP Primary Care Provider [phone] Encounter Details Date Type Department Care Team (Latest Contact Info) Description 08/05/2020 Abstract [facility] CONVERSIONS Dental, Provider, DDS Social History Tobacco [...] Description 09/02/2024 11:00 AM EDT Office Visit [facility] [address] [place] [address] Arlet Sawyer CNP [address] [place] [address] documented as of this encounter Visit Diagnoses Not on filedocumented in this encounter Care Teams Bench Hand Machine Relationship Specialty Start Date End Date Arlet Sawyer CNP [address] [place] [address] PCP - General Family Medicine 07/15/24 documented as of this encounter
--- OUTSIDE RECORDS SUMMARY | 2024-08-26 17:14 | XMS_ITS | Encounter Summary ---
Author Organization [facility] Address [address] [place] [address] [place] [address] Care Team Providers Care Study Specialist Name Role Phone Arlet Sawyer CNP Primary Care Provider [phone] Encounter Details Date Type Department Care Team (Late st Contact Info) Description 10/09/2022 Abstract [facility] [address] [place] [address] Сергей Kunz DMD [address] [place] [address] Social History Tobacco Use Types Packs/Day Years [...] 11:00 AM EDT Office Visit [facility] [address] [place] [address] Arlet Sawyer CNP [address] [place] [address] documented as of this encounter Visit Diagnoses Not on filedocumented in this encounter Care Teams Study Specialist Relationship Specialty Start Date End Date Arlet Sawyer CNP [address] [place] [address] PCP - General Family Medicine 07/15/24 documented as of this encounter
--- OUTSIDE RECORDS SUMMARY | 2024-08-26 17:14 | XMS_ITS | Encounter Summary ---
Author Organization [employer] Address [address] [facility] 7 [place] [address] Care Team Providers Care Herb Counselor Name Role Phone Arlet Sawyer CNP Primary Care Provider [phone] Reason for Visit * Reason Onset Date Comments Med Refill 07/16/2024 Encounter Details Date Type Department Care Team ([facility] st Contact Info) Description 07/16/[address] [facility] [address] [place] [address] Arlet Sawyer CNP [address] [place] [address] Attention deficit hyperactivity disorder (ADHD), unspecified ADHD [...] AM EDT Office Visit [facility] [address] [place] [address] Arlet Sawyer CNP [address] [place] [address] documented as of this encounter Visit Diagnoses Diagnosis Attention deficit hyperactivity disorder (ADHD), unspecified ADHD type documented in this encounter Additional Health Concerns Assessment Noted Time PHQ-9 Depression Total Score: 21 025 10:22 AM EST documented as of this encounter Care Teams Herb Counselor Relationship Specialty Start Date End Date Arlet Sawyer CNP [address] [place] [address] PCP - General Family Medicine 07/15/24 documented as of this encounter
--- OUTSIDE RECORDS SUMMARY | 2024-08-26 17:15 | XMS_ITS | Clinical Summary ---
Author Organization [employer] Address [address] [facility] 7 [place] [address] Care Team Providers Care Kiln Repairer Name Role Phone Arlet Sawyer MIN Primary Care Provider [phone] Allergies No known active allergies Medications * This document contains information received from the source organization and may not represent a complete record from that organization. acetaminophen (Tylenol) 500 MG tablet take 1 tablet (500MG) by oral route every 6 hours as needed 0 Active nicotine (Nicoderm CQ) 7 MG/24HR patchIndications: Encounter for tobacco use cessation counseling Place 1 patch on the skin 1 (one) time each day at the same time. 30 patch 5 Active nicotine polacrilex (Nicorette) 4 MG gumIndications:En counter for tobacco use cessation counseling Chew 1 each (4 mg) if needed for smoking cessation. 100 each 5 Active hydrocortisone 1 % ointmentIndicatio ns:Dermatitis Apply topically 2 times daily. 56 g 5 Active norethindrone-eth inyl estradiol (Nortrel 0.5/35, 28,) 0.5-35 MG-MCG tabletIndications :Encounter for initial prescription of contraceptive pills Take 1 tablet by mouth Once per day. 28 tablet 12 5 07/15/19 26 Active Methylphenidate HCl (methylphenidate ER) 27 MG 24 hr tabletIndications :Attention deficit hyperactivity disorder (ADHD), unspecified ADHD type Take 1 tablet (27 mg) by mouth Once per day. Do not crush, chew, or split. 30 tablet 5 Active nitrofurantoin, macrocrystal-mono hydrate, (Macrobid) 100 MG capsuleIndication s:Acute cystitis with hematuria Take 1 capsule (100 mg) by mouth 2 times daily for 5 days. 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 Date Type Department Care Team Description 08/18/2024 Telephone [facility] [place] [address] Arlet Sawyer CNP Chart Prep 08/17/2024 Orders Only [facility] [place] [address] Arlet Sawyer CNP Encounter for screening examination for sexually transmitted infection (Primary Dx) 08/14/2024 Telephone [facility] [place] [address] Arlet Sawyer CNP Lab Orders 08/07/2024 Population Health Risk Score [facility] ([facility]) Department [address] [place] [phone] Provider, Population Health Generic 08/07/2024 Telephone [facility] [place] [address] Arlet Sawyer CNP Results 08/07/2024 Orders Only [facility] [place] [address] Arlet Sawyer CNP Acute cystitis with hematuria (Primary Dx) 08/05/2024 10:00 AM EDT Procedure Visit [facility] [place] [address] Arlet Sawyer CNP Encounter for Papanicolaou smear for cervical cancer screening (Primary Dx); Encounter for screening examination for sexually transmitted infection; Hearing loss of right ear, unspecified hearing loss type; Abnormal radiologic findings on diagnostic imaging of renal pelvis, ureter, or bladder; Encounter for gynecological examination without abnormal finding; Symptoms of urinary tract infection; Irregular periods; Fibroid 08/05/2024 Orders Only [address] [address] Arlet Sawyer CNP 08/05/2024 Travel 08/03/[address] [address] Arlet Sawyer CNP Nurse Triage 07/17/2024 Orders Only [address] [address] Arlet Sawyer CNP Attention deficit hyperactivity disorder (ADHD), unspecified ADHD type (Primary Dx) 07/16/[address] [address] Arlet Sawyer CNP Attention deficit hyperactivity disorder (ADHD), unspecified ADHD type 07/16/[address] [address] Arlet Sawyer CNP Chart Prep 07/15/2024 10:00 AM EST Office Visit [address] [address] Arlet Sawyer CNP Encounter for screening examination for sexually transmitted disease (Primary Dx); Encounter for initial prescription of contraceptive pills; Dermatitis; Encounter for tobacco use cessation counseling; Healthcare maintenance; Anxiety; Hearing loss of right ear, unspecified hearing loss type; Family history of sickle cell anemia; Allergy, initial encounter; Attention deficit hyperactivity disorder (ADHD), unspecified ADHD type; Vaginal burning; Irregular periods 07/15/[address] [address] Arlet Sawyer CNP 07/15/2024 Travel 07/14/[address] [address] Arlet Sawyer CNP Chart prep 07/07/2024 Patient Outreach [facility] [address] [place] [address] Arlet Sawyer CNP Pre-visit Planning ([facility] unable to reach LVM) 07/07/2024 Telephone [facility] [address] [place] [place] [address] Arlet Sawyer CNP Chart Prep 07/03/2024 10:00 AM EST Office Visit [facility] ADULT DENTAL [address] [place] [address] Ortega Castano 07/02/2024 11:00 AM EST Office Visit [facility] [address] [place] [address] Ortega Castano 06/17/2024 9:30 AM EST Office Visit [facility] [address] [place] [address] Zack Salinas, WALT Severe dental caries (Primary Dx) 06/16/2024 2:00 PM EST Office Visit [facility] AD[facility] [address] [place] [address] Janie Bryant DMD from Last 3 Months Social History Tobacco [...] Description 09/02/2024 11:00 AM EDT Office Visit [facility] MEDICINE [address] [place] [address] Arlet Sawyer, MIN [address] [place] [address] Health Maintenance Due Date Last Done Comments Alcohol/Substance Use Screening 2008 Hepatitis B Vaccines (1 of 3 - 19+ 3-dose series) 01/22/2015 COVID-19 Vaccine (2023-2 5 season) 2024 Influenza Vaccine (#1) 2024 Dental Oral Exam 10/02/2024 04/03/2024, 08/05/2020 Dental Prophylaxis 10/02/2024 04/03/2024, 08/05/2020 Depression Monitoring (PHQ-9) 01/12/2025, 07/15/2024 Dental X-Ray: Bitewings 06/17/2025 06/16/19 25, 04/03/2024, 08/05/2020 Tobacco Screening 06/17/2025 06/17/2024 Depression Screening 07/15/2025 07/15/2024, 07/15/2024 Family Planning (PISQ) 07/15/2025 07/15/2024 SDOH Screening 07/15/2025 07/15/2024 Dental X-Ray: Full Mouth 04/04/2027 024, 08/05/2020, 04/02/2018 Pap Smear 08/06/2027 08/05/2024 DTaP/Tdap/Td Vaccines (2 - T d or [...] Date/Time Associated Diagnosis Comments US PELVIS TRANSVAGINAL Urgent 08/26/2024 2:42 PM EDT Fibroid CHLAMYDIA/N. GONORRHOEAE AND T. VAGINALIS RNA, QUAL,TMA Routine 08/05/2024 10:43 AM EDT Encounter for Papanicolaou smear for cervical cancer screening Encounter for screening examination for sexually transmitted infection POCT , URINE Routine 08/05/2024 10:35 AM EDT Encounter for Papanicolaou smear for cervical cancer screening POCT URINALYSIS DIPSTICK Routine 08/05/2024 10:31 AM EDT Encounter for Papanicolaou smear for cervical cancer screening PAP SMEAR Routine 08/05/2024 Encounter for Papanicolaou smear for cervical cancer screening CULTURE, URINE, ROUTINE Routine 08/05/2024 12:00 AM EDT AMB REFERRAL TO AUDIOLOGY Routine 08/03/2024 Hearing [...] Health Maintenance Results * US Pelvis Transvaginal (08/26/2024 2:42 PM EDT) Only the most recent of2 resultswithin the time period is included. Anatomical Region Laterality Modality Pelvis Ultrasound 08/26/2024 2:42 PM EDT Narrative 08/26/2024 3:21 PM EDT ? [facility] ?[address] ? [place] [address] ? Ultrasound Report ? Signed ? Patient: Amisha Elliott ?MR#: [id number] ?? [id number] ? : 1995 ?Acct:[id number] ? Age/Sex: 29 / F ?ADM Date: 08/26/24 ? Loc: HO.HMGCX ? Attending Dr: Arlet Sawyer MAINTENANCE DISPATCHER ? Ordering Physician: Arlet Sawyer ?? Date of Service: 08/26/24 ?? Procedure(s): US pelvic and transvaginal ?? Accession Number(s): [id number] ? cc: Girma Sawyerxis ? EXAMINATION: ? US PELVIS ? CLINICAL INFORMATION: ? Irregular periods. 29-year-old female. ? COMPARISON: ?? 07/30/2024. ? TECHNIQUE: ?? Ultrasound of the pelvis is performed using both transabdominal and ?? transvaginal transducers along with Doppler. Transvaginal imaging is ?? performed due to inadequate visualization transabdominally. ? FINDINGS: ?? Uterus: ?? The uterus is retroverted, retroflexed, and measures 6.2 x 4.1 x 4.6 ?? cm. ??Normal-appearing cervix with nabothian cysts. ? The double wall endometrial thickness is 2 mm. ??It is uniform without ?? irregularity. ? The uterus is smooth in contour and has normal myometrial echogenicity. ?There is a solitary right mid uterine segment intramural fibroid ?? measuring 0.9 x 0.6 x 0.8 cm (previously measuring 1.3 x 1.1 x 1.2 cm). ? Adnexa: ?? Both ovaries are visualized. There is normal color flow to the adnexa. ?? There is no ovarian torsion. ??There is small volume anechoic free ?? pelvic fluid, likely physiologic. There is a left paraovarian cyst ?? again noted measuring 2.2 x 1.7 x 1.8 cm (previously 2.2 x 1.9 x 1.6 ?? cm). ? Right ovary measures 5.6 x 1.4 x 2.0 cm. Volume = 8.4 mL. There is a ?? simple follicular cyst measuring 1.2 x 0.8 x 1.2 cm. ? Left ovary measures 4.6 x 1.6 x 3.3 cm. Volume = 12.3 mL. Normal ?? sonographic appearance aside from the paraovarian cyst. A small amount ?? of free fluid is seen adjacent to the left ovary. ? US/US pelvic and transvaginal ?? IMPRESSION: ?? 1. No endometrial thickening or abnormality. Retroverted and ?? retroflexed uterus. ?? 2. Right mid uterine segment intramural fibroid measuring 0.9 x 0.6 x ?? 0.8 cm. ?? 3. Left paraovarian cyst measuring 2.2 x 1.7 x 1.8 cm, essentially ?? stable. ?? 4. Ovaries are otherwise normal. ? Electronically signed by: ??Jovani Vallejo MD ??08/26/2024 03:18 PM EDT RP ? Dictated By: ?Jovani Vallejo MD ? Signed By: ?<Electronically signed by Jovani Vallejo MD in OV> ?08/26/248 ? DD/ 1442 ? TD/TT: 08/26/24 1508 ? Talent Recruiter: ? Procedure Note Donotuseinterpreter, Image - 08/26/2024 [facility] [address] [place] [address] [place] [address] Ultrasound Report Signed Patient: Antonia Elliott#: [id number] : 1995Acct:[id number] Age/Sex: 29 FADM Date: 08/26/24 Loc: HO.HMGCX Attending Dr: Arlet Sawyer MAINTENANCE DISPATCHER Ordering Physician: Arlet Sawyer Date of Service: 08/26/24 Procedure(s): US pelvic and transvaginal Accession Number(s): [id number] cc: Arlet Sawyer EXAMINATION: US PELVIS CLINICAL INFORMATION: Irregular periods. 29-year-old female. COMPARISON: 07/30/2024. TECHNIQUE: Ultrasound of the pelvis is performed using both transabdominal and transvaginal transducers along with Doppler. Transvaginal imaging is performed due to inadequate visualization transabdominally. FINDINGS: Uterus: The uterus is retroverted, retroflexed, and measures 6.2 x 4.1 x 4.6 cm. Normal-appearing cervix with nabothian cysts. The double wall endometrial thickness is 2 mm. It is uniform without irregularity. The uterus is smooth in contour and has normal myometrial echogenicity. There is a solitary right mid uterine segment intramural fibroid measuring 0.9 x 0.6 x 0.8 cm (previously measuring 1.3 x 1.1 x 1.2 cm). Adnexa: Both ovaries are visualized. There is normal color flow to the adnexa. There is no ovarian torsion. There is small volume anechoic free pelvic fluid, likely physiologic. There is a left paraovarian cyst again noted measuring 2.2 x 1.7 x 1.8 cm (previously 2.2 x 1.9 x 1.6 cm). Right ovary measures 5.6 x 1.4 x 2.0 cm. Volume = 8.4 mL. There is a simple follicular cyst measuring 1.2 x 0.8 x 1.2 cm. Left ovary measures 4.6 x 1.6 x 3.3 cm. Volume = 12.3 mL. Normal sonographic appearance aside from the paraovarian cyst. A small amount of free fluid is seen adjacent to the left ovary. US/US pelvic and transvaginal IMPRESSION: 1. No endometrial thickening or abnormality. Retroverted and retroflexed uterus. 2. Right mid uterine segment intramural fibroid measuring 0.9 x 0.6 x 0.8 cm. 3. Left paraovarian cyst measuring 2.2 x 1.7 x 1.8 cm, essentially stable. 4. Ovaries are otherwise normal. Electronically signed by: Jovani Vallejo MD 08/26/2024 03:18 PM EDT Dictated By: Jovani Vallejo MD Signed By: <Electronically signed by Jovain Vallejo MD in OV> 08/26/24 1518 DD/ 1442 TD/TT: 08/26/24 1508 Talent Recruiter: [facility] LEAD RECOVERER IMG US PROCEDURES Final R esult * STI testing add on (NG, CT, Trich) (08/05/2024 10:43 AM EDT) Trichomonas (NAAT) [facility] CTNG Ref Lab [facility] Comment:TEST NOT PERFORMEDSp ecimen transport device didnot contain the collection swab. NG Ref Lab [facility] ThinPrep?? vial Cervix uteri structure / Unknown 08/05/2024 10:43 AM EDT 08/07/2024 1:08 PM EDT Narrative [facility] - 08/14/2024 1:26 PM EDT Collection Date: [id number] by: ADELFO Perez: Cervix [facility] LAB CYTOLOGY ORDERABLES F inal Result [facility] [address] [place] [address] [phone] * POCT Urine (08/05/2024 10:35 AM EDT) Only the most recent of2 resultswithin the time period is included. Preg Test, Ur Negative Negative, Indeterminate, None Detected, Invalid, Specimen unsatisfactory for evaluation, Weakly Positive QC Media Lot # [id number] Lot# Expiration Date [id number] Urine 08/05/2024 10:3 5 AM EDT [facility] POINT OF CARE TEST ENTER/ EDIT ORDERABLES [...] ,302,[id number] Urine 08/05/2024 10:3 1 AM EDT [facility] POINT OF CARE TEST ENTER/ EDIT ORDERABLES Final Result * Culture, Urine, Routine (08/05/2024 12:00 AM EDT) Urine Urine specimen obtained by clean catch procedure / Unknown 08/05/2024 08/05/2024 Comment:[facility] Narrative [facility] - 08/07/2024 7:37 AM EDT Escherichia coli Quant > 100,000 cfu/mL Escherichia coli: Ampicillin <=2(S) Escherichia coli: Cefazolin (Urine) <=1(S) Escherichia coli: Cefepime <=0.12(S) Escherichia coli: Ceftriaxone <=0.25(S) Escherichia coli: Ciprofloxacin <=0.06(S) Escherichia coli: Gentamicin <=1(S) Escherichia coli: Nitrofurantoin <=16(S) Escherichia coli: Trimethoprim/Sulfamethoxazole <=20(S) Specimen Source: Urine clean catch Arlet Sawyer [facility] MICROBIOLOGY - GENERA L ORDERABLES Final Result [facility] [address] [place] [address] [phone] * Pap Smear (08/05/2024) Swab Cervix uteri structure / Unknown 08/05/2024 08/12/2024 6:16 AM EDT Narrative [facility] - 08/26/2024 6:28 AM EDT ----- ------- Name: Amisha Elliott ?Age/Sex: 29/F ? : 1995 Unit#: [id number] ?? Attend Dr: Arlet Sawyer ?Re08/05/24 ?Status: DEP REF ? [facility] ? Disch: ? ----- ------- SPEC : [id number] ? RECD: 08/12/24 ? STATUS: ??SOUT ? REQ NUM: [id number] ? ZBIGNIEW: 08/05/24- ? SUBM DR: Arlet Sawyer ? ENTERED: ??08/12/24 ?SP TYPE: Pap Smr ?OTHR DR: ? ORDERED: ??Pap Smear ? Interpretation ?? Satisfactory for evaluation. ?? Negative for intraepithelial lesion or malignancy. ?? Scant cellularity. ?Clinical Information LMP: Unk Previous PAP test: Unk Other surgery: Other history: ? Material Received ?? ThinPrep ----- ------- Signed (signature on file) NOBLE Stokes (ASCP) 08/26/24627 ? ----- ------- ? END OF REPORT ? [facility] LAB CYTOLOGY ORDERABLES F inal Result Performing Organization Address [facility] de Phone Number [facility] [address] [place] [address] [phone] * Referral to Audiology (08/03/2024) [facility] OUTPATIENT REFERRAL ORDER SHELBY Final Result * TSH W/Reflex to FT4 (07/15/2024 1:41 PM EST) Pathologist [facility] TSH reflex Free T4 1.09 0.32 - 4.0 uIU/mL [facility] Blood Venous blood specimen / Unknown 07/15/2024 1:41 PM EST 07/15/2024 4:20 PM EST [facility] LAB BLOOD ORDERABLES Katya l Result Performing Organization Address [facility] de Phone Number [facility] [address] [place] [address] [phone] * (ABNORMAL) CBC auto differential (07/15/2024 1:41 PM EST) White Blood Count 10.5 4.8 - 10.8 X10*3/uL [facility] Red Blood Count 4.97 4.20 - 5.50 X10*6/uL [facility] Hemoglobin 13.4 12.0 - 16.0 g/dl [facility] Hematocrit 40.6 37.0 - 47.0 % [facility] Mean Corpuscular Volume 81.7 80.0 - 98.0 fL [facility] Mean Corpuscular Hemoglobin 27.0 27.0 - 33.0 pg [facility] Mean Corpuscular HGB Conc 33.0 31.0 - 35.0 g/dl [facility] Red Cell Distribution Width 13.9 11.0 - 16.0 % [facility] Platelet Count 282 160 - 400 X10*3/uL [facility] Mean Platelet Volume 9.0(L) 9.4 - 12.3 fL [facility] Neutrophils Percent Auto 65.3 45 - 73 % [facility] Imm Gran Pct Auto 0.4 0.0 - 0.4 % [facility] Lymphocytes Percent Auto 27.8 20 - 40 % [facility] Monocytes Percent Auto 5.6 2 - 11 % [facility] Eosinophils Percent Auto 0.6 0 - 4 % [facility] Basophils Percent Auto 0.3 0 - 2 % [facility] NRBC Pct Auto 0.0 0.0 - 0.2 /100WBC [facility] Neutrophils Absolute Auto 6.9 2.0 - 8.3 x10*3/uL [facility] Imm Gran Abs Auto 0.04(H) 0.00 - 0.03 X10*3/uL [facility] Lymphocytes Absolute Auto 2.9 1.2 - 4.9 X10*3/uL [facility] Monocytes Absolute Auto 0.6 0.1 - 1.2 X10*3/uL [facility] Eosinophils Absolute Auto 0.1 0.0 - 0.4 X10*3/uL [facility] Basophils Absolute Auto 0.0 0.0 - 0.2 X10*3/uL [facility] NRBC Abs Auto 0.000 0.0 - 0.012 X10*3/uL [facility] Blood Venous blood specimen / Unknown 07/15/2024 1:41 PM EST 07/15/2024 4:20 PM EST us Arlet Sawyer LEAD RECOVERER LAB BLOOD ORDERABLES Katya l Result [facility] [address] [place] [phone] * Hepatitis C Antibody with Reflex to HCV, RNA, Quantitative, Real-Time PCR (07/15/2024 1:41 PM EST) Pathologist [facility] Hepatitis C Antibody Nonreactive Nonreactive [facility] Comment:Antibodies to HCV no t detected; does not exclude early acuteHCV infection. Blood Venous blood specimen / Unknown 07/15/2024 1:41 PM EST 07/15/2024 4:20 PM EST [facility] LAB BLOOD ORDERABLES Katya l Result Performing Organization Address [facility] Co de Phone Number [facility] [address] [place] [phone] * HIV-1/2 Antigen and Antibodies, Fourth Generation, with Reflexes (07/15/2024 1:41 PM EST) Pathologist [facility] HIV AB/AG Nonreactive Nonreactive [facility] Comment:HIV-1 p24 Ag and/or HIV-1/HIV-2 Ab not detected.A test result that is nonreactive does not exclude thepossibility of exposure to or infection with HIV-1 and/orHIV-2. Nonreactive results in this assay for individualswith prior exposure to HIV-1 and/or HIV-2 may be due toantigen and antibody levels that are below the limit ofdetection of this assay.The Tã Em Bé HIV Ag/Ab Combo assay result andsupplemental assay results should be interpreted inconjunction with the patient's clinical presentation,history and other laboratory results. If the results areinconsistent with clinical evidence, additional testing issuggested to confirm the result. Blood Venous blood specimen / Unknown 07/15/2024 1:41 PM EST 07/15/2024 4:20 PM EST [facility] BLOOD ORDERABLES Katya l Result Performing Organization Address City/[facility] Co de Phone Number [facility] [address] [place] [phone] from Last 3 Months Insurance [facility] C3 DENTAL-[facility] MEDICAID STAND ADULT [address] Care Teams Kiln Repairer Relationship Specialty Start Date End Date Arlet Sawyer CNP [address] [place] [phone] PCP - General Family Medicine 07/15/24
== END 2024-08-26 14:30 | disposition home or self-care (01) ==
LOC: HO.HMGCX 14:29
DX: D21.9 Benign neoplasm of connective and other soft tissue, unspecified (principal)
CPT/HCPCS: 76830; 76856

== ENCOUNTER → 2024-08-26 14:42 | Outpatient (BNV) | payer MEDICAID, SELFPAY | PROVIDERS: Visit Provider Radiology Diagnostic Radiology | DX: N92.6 Irregular menstruation, unspecified (principal) | CPT/HCPCS: 76830; 76856 ==